=== PATIENT | female | born 1990 | race Caucasian/White ===

== ENCOUNTER 2018-01-12 08:11 | Day surgery (SDC) | payer MEDICAID, SELFPAY ==
[2018-01-12] VITALS (11 sets, daily range): BP systolic 125–170; BP diastolic 73–97; PULSE 95–110; RESP 16–18; TEMP 36.3–37.3; O2SAT 94–98; BMI 52.2
--- NOTE | 2018-01-12 06:17 | PCM.HP.OB ---
- Problem List (1) Abnormal uterine bleeding Status: Acute (2) Endometriosis Status: Acute History Date of Admission: 01/12/18 History of this : 28 yo presents with persistent AUB and pain due to endometriosis that she has struggled with since puberty. She has tried hormonal therapy in the past but now has a liver lesion that contraindicates hormones. She failed a trial of lysteda. She co significant pain and heavy bleeding that interferes with quality of life and is unable to be managed with pain medication. She has discussed hysterectomy several times over the years and had another physician decline to offer this to her due to age and risk of regret. The patient and her referring pcp have discussed this multiple times and she has also with myself that she is ready for a hysterectomy despite her not having any children. She has never wanted children regardless of any partners wishes and for quality of life patient wishes to proceed with hysterectomy. Pertinent Past Medical History: Medical History Anxiety and depression (Acute) Endometriosis (Acute) Hepatic adenoma (Acute) fibromylagia (Acute) Hypertension (Chronic) Surgical History History of dental surgery (Acute) History of liver biopsy (Acute) History of tonsillectomy (Acute) adnoids (Acute) Family History Mother Thyroid disorder Diabetes Grandmother Thyroid disorder Osteoporosis Breast cancer Father Hypertension Social History Smoking Status: Never smoker alcohol intake: never substance use type: does not use caffeine: No what type of physical activity do you participate in: none seatbelt use: always do you feel safe at home: Yes additional social history: patient is single and works at a [employer] Allergies No Known Allergies Allergy (Verified 01/05/18 13:54) Current Medications Cefotetan Disodium/Dextrose (Cefotan) 2 gm in 50 mls @ 100 mls/hr IV PREOP ONE Stop: 01/12/18 07:29 Review of Systems Constitutional: Denies: Chills, Fever, Weight Change HEENT: Denies: Head Aches, Sinus Congestion, Sinus Drainage Cardiovascular: Denies: Chest Pain, Palpitations Respiratory: Denies: Cough, Shortness of breath at rest, Sputum production Gastrointestinal: Reports: Abdominal Pain. 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 discussed at length risk of regret due to hysterectomy, risk of anesthesia, risk of infection, bleeding, damage to surrounding structures like bowel, bladder, or blood vessels that could lead to laparotomy or additional surgery. patient wishes to proceed with surgery.
[2018-01-12 08:34] LABS: Internal QC Validated? YES +Cl - CLEAR BKGD
[2018-01-12 08:35] LABS: Pregnancy, Urine Negative Negative
[2018-01-12 09:36] LABS: Hematocrit 38.8 % (37-47); Hemoglobin 12.7 g/dl (12.0-15.0); Mean Corp Hgb Conc 32.7 g/gl (32-36); Mean Corpuscular Hgb 28.6 pg (27.0-32.0); Mean Corpuscular Volume 87.4 fL (81-99); Platelet Count 306 K/mm3 (150-450); RBC Distribution Width CV 14.4 % (11.6-14.6); RBC Distribution Width SD 45.5 fl (35.1-43.9); Red Blood Count 4.44 M/mm3 (4.2-5.4)
[2018-01-12 09:37] LABS: Scan Indicated on CBC? Y/N NO
[2018-01-12 09:48] LABS: Anion Gap 10 (5-15); BUN 10 mg/dL (7-18); BUN/Creat Ratio 15.8 RATIO (10-20); Calcium,Total 8.4 mg/dL (8.5-10.1); Chloride 105 mmol/L (98-107); Creatinine, Serum 0.63 mg/dL (0.55-1.02); EST Glomerular Filtration Rate 119 mL/min (>60); Est Glom Filt Rate - Afr Amer 144 mL/min (>60); Glucose 78 mg/dL (74-106); Potassium 3.8 mmol/L (3.5-5.1); Sodium Level 141 mmol/L (136-145)
--- NOTE | 2018-01-12 09:50 | HYST_PTH ---
PATIENT: PORTIA GUERRA LOC: [facility] [place] U#:[id number] AGE/SX: 28/F ROOM: RE01/12/[address]: Dr. Yelena Myers MD : 1990 BED: DIS: 01/13/2018 SPEC #: [id number] RECD: 01/12/18 13:20 STATUS: MATTHEW ORLANDO #: [id number] JOHN: 01/12/18 09:[address]: Yelena Myers DEPT: SURGICAL PATHOLOGY RECD BY: Emerald Foy ENTERED: 01/12/18 13:53 SP TYPE: HYSTERECT OT DR: Valery Primary Care Phys Tissues: A - Uterus, NOS B - OVARIAN CYST Procedures: Surgery Specimen Level IV Surgery Specimen Level V HEADER OPERATION: Hysterectomy, lap assisted vaginal, bilateral salpingectomy PRE-OP DIAGNOSIS: Abnormal uterine bleeding, endometriosis TISSUE SUBMITTED: A. Uterus with bilateral fallopian tubes, B. Left ovarian cyst wall MICROSCOPIC DIAGNOSIS A. Uterus and bilateral fallopian tubes, vaginal hysterectomy and bilateral salpingectomy: Cervix ? chronic inflammation. Endometrium ? proliferative endometrium. Myometrium ? subserosal adenomyosis. Bilateral fallopian tubes - no pathologic diagnosis. Left paratubal cyst. B. Left ovarian cyst wall: Consistent with hemorrhagic cyst contents. See comment. SJ:rg 01/13/18 COMMENT Focal areas show follicular cells, lesion may represents follicular hemorrhagic cyst.. Clinical correlation and appropriate follow up are necessary. This case has been reviewed in consultation with Dr. Rossi who concurs with the above diagnosis. MICROSCOPIC DESCRIPTION Slides are reviewed. GROSS DESCRIPTION A - Received in fixative is one container labeled with the patient's name and designated uterus with bilateral fallopian tubes. The specimen consists of a hysterectomy specimen consisting of uterus with cervix and attached bilateral fallopian tubes. The uterus with cervix weighs 67 gm and measures 8 x 6 x 3.5 cm. The serosal surface is focally ragged. The ectocervical mucosa is unremarkable. The external os is oval in contour. The endocervical canal measures 3 cm in length and the endocervical mucosa is day, glistening and unremarkable. The triangular endometrial cavity measures 5 cm in length and 2.5 cm in width. The endometrium is day, glistening without any mass lesion and measures 0.1 cm in thickness. Sections of the uterine wall do not reveal any mass lesion and it measures 1.8 cm in thickness. The right fallopian tube measures 6 cm in length and up to 1 cm in diameter. The fimbrial end is identified. Sections reveal unremarkable cut surfaces. The left fallopian tube is similar appearance to right and measures 5.5 cm in length and up to 1 cm in diameter. The fimbrial end is identified. One paratubal cyst is noted measuring 1 cm in greatest dimension. Sections reveal unremarkable cut surfaces. Corporate Relations Manager sections are submitted in eight cassettes as follows: 1 - anterior cervix, 2 - posterior cervix, 3 & 4 - anterior uterine wall, 5 & 6 - posterior uterine wall, 7 ? right fallopian tube, 8 ? left fallopian tube. B - Received in fixative is one container labeled with the patient's name and designated left ovarian cyst wall. The specimen consists of multiple pieces of pink, congested soft tissue that in aggregate measure 1.5 x 1.5 x 0.3 cm. The entire specimen is submitted in one cassette. / ONIEL:jorge 01/12/18 TC:5 CPT: 05611, 29098
[2018-01-12] MEDS: Vasopressin 20 UNITS/ML Vial (11:44)
[2018-01-12] MEDS: Bupivacaine 0.25% 30 ML Vial (11:44)
--- NOTE | 2018-01-12 12:34 | OP.PCM_ITS ---
Problem List (1) Abnormal uterine bleeding Status: Acute (2) Endometriosis Status: Acute Report of Operation Date of Procedure: 01/12/18 Pre-Operative Diagnosis: AUB endometriosis Post-Operative Diagnosis: same Surgery/Procedure Performed:: laparoscopic assisted vaginal hysterectomy bilateral salpingectomy cystoscopy Description of Surgical Findings:: significant endoemtriosis implant and thickening, normal uterus clubbed fallopian tubes, ovaries multicystic with endometriosis implants Type of Anesthesia:: General Specimen's removed: uterus tubes ovaries Drains: cshulte Estimated Blood Loss (mL): 150 Fluids Replaced: crystalloid Description of Procedure: Patient received preoperative antibiotics and SCDs were on preoperatively. Patient was taken back to the operating room and placed in the dorsal lithotomy position. General anesthesia was induced and patient was prepped and draped in normal sterile fashion. Uterine manipulator was placed inside the uterus and Schulte catheter placed in the bladder. The umbilicus was grasped with towel clamps and an intraumbilical incision was made after injecting with quarter percent Marcaine and a Veress needle entered into the abdomen confirmed to be intra-abdominal with a low opening pressure. Abdomen was insufflated with CO2 gas and the Veress needle removed and the 5 mm trocar was placed under direct visualization without complication. Right and left lower quadrants were transilluminated and injected with quarter percent Marcaine and 5 mm ports placed under direct visualization. Pelvis was well visualized see operative findings for additional information. Tubal endometriosis implants and other endometriosis implants were seen on the anterior lower uterine corpus and bilateral ovaries. bilateral fallopian tubes were identified and transected with the LigaSure device across the mesosalpinx to the level of the utero- ovarian ligament which was also transected with the LigaSure device. The broad ligament was opened up by transecting the round ligament bilaterally and skeletonizing the uterine vessels bilaterally and creating a bladder flap using the LigaSure device. The uterine arteries were transected bilaterally with good visualization of the bladder and the ureters were seen to be inferior lateral to the operative area. There is rectosigmoid adhesions that were transected with the LigaSure device and also some left paracolic adhesions that were transected with the LigaSure device. Attention was then paid to the vaginal portion of the procedure and the cervix was grasped with Clay clamps and circumferentially injected with dilute vasopressin. A circumferential incision was made and the vaginal mucosa was mobilized off posteriorly and the cul-de-sac entered into sharply and a longneck speculum placed. The anterior cul-de-sac was then identified and entered into sharply. The uterosacral ligaments were clamped cut and suture ligated with 0 Monocryl bilaterally followed by the cardinal ligaments which were clamped cut and suture ligated bilaterally with 0 Monocryl. The uterus serially descended and was removed without difficulty with minimal morcellation. Pelvic sidewall pedicles were checked and noted to have excellent hemostasis. The vaginal mucosa was reapproximated incorporating the posterior peritoneum. This was reapproximated using 0 Vicryl [id number] sutures. Excellent hemostasis was noted. The cystoscopy was then performed and bilateral ureteral strong spray was noted and the bladder was noted to have no abnormality or lesions seen. Schulte catheter was replaced and then attention paid to the abdominal portion of the procedure again. The pelvis and cul-de-sac was well visualized and no significant active bleeding noted but some raw areas were seen on the peritoneum and therefore Jaime was applied. The remaining endometriosis implants that were seen in the ovaries were cauterized with monopolar energy. The left ovary was cystic and was opened up and it was unclear whether it was a hemorrhagic corpus luteum or a possible small endometrioma with a cyst wall was removed and sent to pathology for analysis. Pressure was taken down and the areas visualized and noted of excellent hemostasis. All ports were removed under direct visualization without complication and the abdomen was desufflated of air. The instruments removed from the abdomen and the vagina vaginal sweep was negative. Port sites on the abdomen were closed with 4-0 Monocryl interrupted sutures and Steri's and windows were applied. She was awoken and taken recovery in stable condition. Grafts/Implants Used: none - Complications none - Admit VTE Documentation VTE Present on Admission: No VTE Mechan Device Prophylaxis: SCD's
[2018-01-12] MEDS: Lactated Ringers 1,000 ML 125 ML IV (15:17)
[2018-01-12] MEDS: Acetaminophen 500 MG Tablet 1000 MG PO ×2 (16:02→21:17)
[2018-01-12] MEDS: Gabapentin 600 MG Tablet PO ×2 (16:02→21:17)
[2018-01-12] MEDS: Ketorolac 30 MG/ML Syringe IV (17:36)
[2018-01-12] MEDS: oxyCODONE 5 MG Tablet PO (20:07)
[2018-01-12] MEDS: Amitriptyline 25 MG Tablet 50 MG PO (21:17)
[2018-01-12] MEDS: DULoxetine Hcl 60 MG Capsule PO (21:17)
[2018-01-13 02:23] VITALS: BP 139/85; PULSE 105; RESP 16; TEMP 36.6; O2SAT 98
[2018-01-13] MEDS: Ketorolac 10 MG Tablet PO (06:14)
[2018-01-13] MEDS: Gabapentin 600 MG Tablet PO (06:15)
[2018-01-13] MEDS: Acetaminophen 500 MG Tablet 1000 MG PO (06:15)
[2018-01-13 07:26] VITALS: BP 128/80; PULSE 102; RESP 20; TEMP 36.9; O2SAT 92
[2018-01-13] MEDS: oxyCODONE 5 MG Tablet PO (07:39)
[2018-01-13] MEDS: Multivitamins,Therapeutic Tablet 1 TABLET PO (07:40)
[2018-01-13 07:51] LABS: Hemoglobin 11.9 g/dl (12.0-15.0); Mean Corp Hgb Conc 33.1 g/gl (32-36); Mean Corpuscular Hgb 29.1 pg (27.0-32.0); Mean Platelet Vol. 8.7 fl (6.2-12.0); Platelet Count 301 K/mm3 (150-450); RBC Distribution Width CV 14.3 % (11.6-14.6); RBC Distribution Width SD 45.7 fl (35.1-43.9); Red Blood Count 4.09 M/mm3 (4.2-5.4); White Blood Count 10.6 K/mm3 (4.4-11.0)
[2018-01-13 07:53] LABS: Scan Indicated on CBC? Y/N NO
[2018-01-13] MEDS: hydroCHLOROthiazide 25 MG Tablet PO (09:21)
[2018-01-13] MEDS: DULoxetine Hcl 60 MG Capsule PO (09:21)
--- NOTE | 2018-01-13 09:28 | PCM.PN.OB ---
Subjective: doing well no complaints pain controlled no CP SOB N V - Physical Exam General: Alert, Oriented x3 Vital Signs Temp Pulse Resp BP Pulse Ox 98.5 F 102 H 20 H 128/80 H 92 01/13/18 07:26 01/13/18 07:26 01/13/18 07:26 01/13/18 07:26 01/13/18 07:26 Oxygen Flow Rate (L/min) 2 Oxygen Delivery Method Room Air Weight: 304 lb 7.334 oz Body Mass Index (BMI) 52.2 Intake and Output for Last 24 Hours 01/11/18 01/12/18 01/13/18 23:59 23:59 23:59 Intake Total 2284 / 2284 530 / 530 Output Total 1100 / 1100 1525 / 1525 Balance 1184 / 1184 -995 / -995 Laboratory Tests Past 24 Hrs 01/12/18 01/12/18 01/12/18 09:15 09:15 09:15 WBC 7.0 RBC 4.44 Hgb 12.7 Hct 38.8 MCV 87.4 MCH 28.6 MCHC 32.7 RDW 14.4 RDW Differential 45.5 H Plt Count 306 MPV 9.0 Sodium 141 Potassium 3.8 Chloride 105 Carbon Dioxide 26.0 Anion Gap 10 BUN 10 Creatinine 0.63 Estim Creat Clear Calc 114.80 Est GFR (MDRD) Af Amer 144 Est GFR (MDRD) Non-Af 119 BUN/Creatinine Ratio 15.8 Glucose 78 Calcium 8.4 L Blood Type A POSITIVE Antibody Screen NEGATIVE 01/13/18 07:35 WBC 10.6 RBC 4.09 L Hgb 11.9 L Hct 36.0 L MCV 88.0 MCH 29.1 MCHC 33.1 RDW 14.3 RDW Differential 45.7 H Plt Count 301 MPV 8.7 Sodium Potassium Chloride Carbon Dioxide Anion Gap BUN Creatinine Estim Creat Clear Calc Est GFR (MDRD) Af Amer Est GFR (MDRD) Non-Af BUN/Creatinine Ratio Glucose Calcium Blood Type Antibody Screen Assessment/Plan s/p [facility]BS doingw [facility] routine care [place]
--- NOTE | 2018-01-13 09:31 | PCM.DC.VHY ---
Discharge Diet: No Restrictions Discharge Activity: Return to Normal Activity, May Not Drive, May Shower May resume sexual activity in: 6-8 weeks Call your doctor if your incision/area has: Continuous Slow Oozing, Sudden Increased Bleeding, Increased Pain/ Swelling, Increased Redness, Foul Smelling Discharge Call your doctor if you observe: Fever of 101 or Higher, Inability to urinate, Inability to have a bowel movement, Using more than one pad per hour Allergies/Adverse Reactions: Allergies No Known Allergies Allergy (Verified 01/05/18 13:54) Medications to take at Discharge amitriptyline 50 mg tablet 50 mg PO QHS 11/10/17 duloxetine 60 mg capsule,delayed release 60 mg PO BID 11/10/17 Gabapentin [Gralise] 600 mg PO TID 01/05/18 Hydrochlorothiazide [Hctz] 25 mg PO DAILY 01/05/18 Multivitamin [Daily Multiple Vitamin] 1 each PO DAILY 01/05/18 Naproxen [Naprosyn] 250 - 500 mg PO Q8H PRN PRN #30 tab 01/13/18 Oxycodone HCl/Acetaminophen [Percocet 5-325] 2 tablet PO Q4H PRN PRN 7 Days #28 tablet 01/13/18 The following prescriptions were given: Oxycodone HCl/Acetaminophen [Percocet 5-325] 2 tablet PO Q4H PRN PRN 7 Days #28 tablet PRN Reason: Moderate-Severe pain Naproxen [Naprosyn] 250 - 500 mg PO Q8H PRN PRN #30 tab PRN Reason: MILD PAIN Primary Care Physician: Care Physician,No Primary [Primary Care Provider] - Please Follow Up With: Yelena Myers MD - [phone] When: 2 and 6 weeks
[2018-01-13] MEDS: Enoxaparin 60 MG/0.6 ML Syringe SC (10:07)
[2018-01-13 10:15] VITALS: BP 128/80; PULSE 102; RESP 20; TEMP 36.9; O2SAT 92
== END 2018-01-13 09:30 | disposition home or self-care (01) ==
LOC: SDC 08:12 → AC 08:13 → MS3 14:05
PROVIDERS: Anesthesiology; Visit Provider Obstetrics & Gynecology
PROC: 0UT9FZZ Resection of Uterus, Via Natural or Artificial Opening With Percutaneous Endoscopic Assistance (ICD-10-PCS; CPT 58552; principal; 2018-01-12 09:25)
DX: N93.9 Abnormal uterine and vaginal bleeding, unspecified (principal); N80.0 Endometriosis of uterus; N83.202 Unspecified ovarian cyst, left side; N72 Inflammatory disease of cervix uteri; F41.9 Anxiety disorder, unspecified; F32.9 Major depressive disorder, single episode, unspecified; Z79.899 Other long term (current) drug therapy; I10 Essential (primary) hypertension; K76.9 Liver disease, unspecified; M79.7 Fibromyalgia
CPT/HCPCS: 00940; 58552; 36415; 80048; 81025; 85027; 86850; 86900; 88305; 88307; J7120; J2405

== ENCOUNTER → 2022-04-01 | Outpatient (CLI) | payer MEDICAID, SELFPAY ==
--- NOTE | 2022-04-01 18:26 | US_ITS ---
STUDY: ULTRASOUND OF THE FEMALE PELVIS - COMPLETE REASON FOR EXAM: Female, 32 years old. PELVIC PAIN TECHNIQUE: Transabdominal and transvaginal scanning. TECHNICAL QUALITY: Adequate. COMPARISON: None. FINDINGS: UTERUS: Surgically absent. RIGHT OVARY: Visualized by transabdominal scanning. Right ovary is normal in size measuring 3.6 x 2.1 x 1.7 cm in diameter. Normal Doppler flow noted within the right ovary. No right ovarian or paraovarian mass lesion. LEFT OVARY: Visualized by transabdominal scanning. Left ovary is enlarged measuring 8.0 x 5.9 x 4.2 cm in diameter. This enlarged left ovary is lobulated and contains multiple thin-walled anechoic cystic foci, consistent with ovarian cysts which measure up to 3.7 x 4.1 x 2 cm in diameter. Doppler flow is noted within the rim of peripheral ovarian tissue. No paraovarian mass. There is no fluid in the cul-de-sac. The pre void volume of the bladder was 262 ml. US/Pelvic (Non ) IMPRESSION: Status post hysterectomy. No findings of ovarian torsion. Normal right ovary. Enlarged left ovary due to multiple cystic foci, consistent with ovarian cysts but follow-up may be of benefit to document interval resolution. Electronically Signed: Sage Wade MD at 7:39 EDT ,
--- NOTE | 2022-04-01 18:26 | US_ITS ---
STUDY: ULTRASOUND OF THE FEMALE PELVIS - COMPLETE REASON FOR EXAM: Female, 32 years old. PELVIC PAIN TECHNIQUE: Transabdominal and transvaginal scanning. TECHNICAL QUALITY: Adequate. COMPARISON: None. FINDINGS: UTERUS: Surgically absent. RIGHT OVARY: Visualized by transabdominal scanning. Right ovary is normal in size measuring 3.6 x 2.1 x 1.7 cm in diameter. Normal Doppler flow noted within the right ovary. No right ovarian or paraovarian mass lesion. LEFT OVARY: Visualized by transabdominal scanning. Left ovary is enlarged measuring 8.0 x 5.9 x 4.2 cm in diameter. This enlarged left ovary is lobulated and contains multiple thin-walled anechoic cystic foci, consistent with ovarian cysts which measure up to 3.7 x 4.1 x 2 cm in diameter. Doppler flow is noted within the rim of peripheral ovarian tissue. No paraovarian mass. There is no fluid in the cul-de-sac. The pre void volume of the bladder was 262 ml. US/Transvaginal Non- IMPRESSION: Status post hysterectomy. No findings of ovarian torsion. Normal right ovary. Enlarged left ovary due to multiple cystic foci, consistent with ovarian cysts but follow-up may be of benefit to document interval resolution. Electronically Signed: Sage Wade MD at 7:39 EDT ,
== END | disposition home or self-care (01) ==
PROVIDERS: Visit Provider Obstetrics & Gynecology
DX: R10.2 Pelvic and perineal pain (principal)
CPT/HCPCS: 76830; 76856

== ENCOUNTER → 2022-04-19 | Outpatient (CLI) | payer MEDICAID, SELFPAY ==
--- NOTE | 2022-04-19 18:21 | US_ITS ---
ACR Level 3 findings have been noted. An addendum which confirms receipt of the report will follow. rScriptor Unformatted Report Gender: Female Age: 32 years Exam: US Pelvis Non OB Complete With Transvaginal Imaging Comparison: April 01, 2022. History: pelvic pain Right ovary 4.1 cm x 3.1 cm x 3.3 cm with documented blood flow. Small central cystic area similar to prior exam.. Left ovary including paraovarian or exophytic cystic component, left ovary solid or homogeneous heterogeneous component portion measuring 4.2 cm x 4 cm x 5.4 cm with intermediate echogenicity and underlying bilobed thin-walled cystic structure of 4.9 cm x 2.7 cm x 2.9 cm or multiple adjacent cysts. Overall size of the left ovary with what appeared to be exophytic or adjacent cysts measuring roughly 7.2 cm x 5.3 cm. Left ovary was reportedly 8 cm x 5.9 cm x 4.2 cm on prior exam. US/Transvaginal Non- IMPRESSION: Unremarkable right ovary. Complex appearance of left adnexa, similar in size and complexity to April 01, 2022, only 18 day follow-up. Minimal apparent blood flow in the zone surrounding almost isoechoic contents of a possible cystic lesion, this may be endometrioma or dermoid in the left ovary but cannot exclude neoplasm or or torsion with necrosis. There is only minimal peripheral blood flow of the left ovary suggesting replacement by complex cystic lesion, less likely due to torsion. Consideration for MRI is recommended. Electronically Signed: Kathi Yuan MD at 6:16 EDT ,
--- NOTE | 2022-04-19 18:21 | US_ITS ---
ACR Level 3 findings have been noted. An addendum which confirms receipt of the report will follow. rScriptor Unformatted Report Gender: Female Age: 32 years Exam: US Pelvis Non OB Complete With Transvaginal Imaging Comparison: April 01, 2022. History: pelvic pain Right ovary 4.1 cm x 3.1 cm x 3.3 cm with documented blood flow. Small central cystic area similar to prior exam.. Left ovary including paraovarian or exophytic cystic component, left ovary solid or homogeneous heterogeneous component portion measuring 4.2 cm x 4 cm x 5.4 cm with intermediate echogenicity and underlying bilobed thin-walled cystic structure of 4.9 cm x 2.7 cm x 2.9 cm or multiple adjacent cysts. Overall size of the left ovary with what appeared to be exophytic or adjacent cysts measuring roughly 7.2 cm x 5.3 cm. Left ovary was reportedly 8 cm x 5.9 cm x 4.2 cm on prior exam. US/Pelvic (Non ) IMPRESSION: Unremarkable right ovary. Complex appearance of left adnexa, similar in size and complexity to April 01, 2022, only 18 day follow-up. Minimal apparent blood flow in the zone surrounding almost isoechoic contents of a possible cystic lesion, this may be endometrioma or dermoid in the left ovary but cannot exclude neoplasm or or torsion with necrosis. There is only minimal peripheral blood flow of the left ovary suggesting replacement by complex cystic lesion, less likely due to torsion. Consideration for MRI is recommended. Electronically Signed: Kathi Yuan MD at 6:16 EDT ,
== END | disposition home or self-care (01) ==
LOC: US 18:20
PROVIDERS: Visit Provider Obstetrics & Gynecology
DX: N83.202 Unspecified ovarian cyst, left side (principal); N80.9 Endometriosis, unspecified; N93.9 Abnormal uterine and vaginal bleeding, unspecified; R10.2 Pelvic and perineal pain
CPT/HCPCS: 76830; 76856; 93976

== ENCOUNTER 2022-04-21 15:54 | Observation (INO) | payer MEDICAID, SELFPAY ==
[2022-04-21] VITALS (16 sets, daily range): BP systolic 100–151; BP diastolic 47–87; PULSE 77–100; RESP 14–16; TEMP 36.4–37.1; O2SAT 94–100; BMI 50.8; BMI 50.6
--- NOTE | 2022-04-21 08:00 | PCM.HP.BLA ---
History and Physical Date of Admission: 04/21/22 Date of Service:? 04/07/22 MR#: [id number] Acct: [id number] Name:PORTIA BAR Rep #: [id number] : 1990 ? ? Provider: Dr. Shayla Harrington, DO Age/Sex:? 32/F ? ? [place] [facility] [place]igned Intake Vital Signs ? 04/07/2210:29 Height 5 ft 4 in Weight: 302 lb 4 oz BMI 51.8 BP 120/90 H Intake Visit Reasons:?left adnexal mass Certified Personal Trainer Required: No Is patient in pain?: Yes Allergies No Known Allergies Allergy (Verified 04/07/22 10:30) Medications amitriptyline 50 mg tablet 50 mg PO QHS 11/10/17 [History Confirmed 04/07/22] multivitamin [Daily Multiple Vitamin] 1 ea PO DAILY 01/05/18 [History Confirmed 04/07/22] gabapentin 600 mg tablet,extended release 24 hr 400 mg PO TID? tab 04/07/22 [History Confirmed 04/07/22] hydrochlorothiazide 25 mg tablet 50 mg PO DAILY? tab 04/07/22 [History Confirmed 04/07/22] ketorolac 10 mg tablet 10 mg PO Q8H 5 Days #15 tab 04/07/22 [Rx Confirmed 04/07/22] topiramate 50 mg tablet 50 mg PO BID 04/07/22 [History Confirmed 04/07/22] venlafaxine 75 mg capsule,extended release 24 hr 75 mg PO DAILY 04/07/22 [History Confirmed 04/07/22] Post menopausal: No Patient : No : No PFSH Medical History? Anxiety and depression Endometriosis fibromylagia Hepatic adenoma Hypertension Surgical History? adnoids History of dental surgery History of liver biopsy History of tonsillectomy Family History? Mother Thyroid disorder DiabetesGrandmother Thyroid disorder Osteoporosis Breast cancerFather Hypertension Social History?(Updated 04/07/22 @ 10:30 by Lilo Sousa) Smoking Status:? Former smoker alcohol intake:? never substance use type:? does not use caffeine:? No what type of physical activity do you participate in:? none seatbelt use:? always do you feel safe at home:? Yes additional social history:? Single ? HPI left adnexal mass Details: PORTIA GUERRA is a 32 year old who presents for discussion of a recent finding on ultrasound showing an 8 cm left ovary containing 2 simple ovarian cyst measuring 3 and 4 cm each.? Patient complains of severe pelvic pain despite history of hysterectomy with Dr. Myers in the past.? Patient denies any nausea vomiting diarrhea constipation she denies fevers or chills. Female Reproductive History Menopausal Symptoms: No hot flashes, No night sweats, No difficulty concentrating and No change in libido Pregancy History ? ? ? 0 ? Elective abortions ? Hx Para ? Spontaneous abortions ? Hx # Term Pregnancies ? Ectopic pregnancies ? Hx # Pregnancies ? Multiple births ? # of living children ? ROS Const Constitutional: Reports as per HPI; Denies fatigue, increased appetite, poor appetite, night sweats, weight gain or weight loss Cardio Card: Denies chest pain Resp Resp: Denies cough or dyspnea GI GI: Reports as per HPI; Denies abdominal pain, bloating, constipation, nausea or vomiting : Reports as per HPI and other; Denies difficulty voiding, dysuria, hematuria, hot flashes, nipple discharge, pelvic pain, prolapse symptoms, urinary frequency, urinary incontinence, urinary urgency, vaginal discharge, vaginal dryness, vaginal odor or vaginal pruritus Skin Skin/Breast: Denies changing lesions, breast mass, breast pain, breast skin changes or nipple discharge Psych Psych: Denies anxiety, change in libido, depression or difficulty concentrating Exam Const General: cooperative, healthy appearing, comfortable and no acute distress HENMT Head: normal to inspection Neck Neck: normal visual inspection Resp Effort & Inspection: normal respiratory effort Skin General: no rashes or lesions noted Neuro General: patient alert, patient awake and patient oriented x3 Extrem General: normal to inspection and other (obese) Psych Appearance: grossly normal Speech and Movement: speech and movement normal Coding Level of Care Code Off vis,est,level 5 Diagnoses Abnormal uterine bleeding? N93.9 Endometriosis? N80.9 Morbid obesity? E66.01 Ovarian cyst, left? N83.202 Assessment and Plan Assessment and Plan (1) Abnormal uterine bleeding: ?Status:?Acute (2) Endometriosis: ?Status:?Acute (3) Morbid obesity: ?Status:?Acute (4) Ovarian cyst, left: ?Status:?Acute ?Plan - Dr. Shayla Harrington, DO: 2 simple appearing ovarian cysts located on the left ovary creating pelvic pain and discomfort overall and ovarian size measures 8 cm.? I have recommended to the patient to try nonsteroidal anti-inflammatories and a prescription was sent to the pharmacy for naproxen 500 mg twice daily as needed pain.? My strongest recommendation is for follow-up for resolution of the cyst however the patient would like to proceed with the diagnostic laparoscopy with left salpingo-oophorectomy.? She agrees to repeating the ultrasound prior to surgery if surgery takes more than 1 to 2 weeks to schedule. After discussing the patient's diagnosis and treatment plan options, patient wishes to proceed with surgical management.? I have discussed with the patient the risks, benefits, and alternatives of the procedure which include but are not limited to risks of anesthesia, bleeding, infection, possible damage to bowel, bladder, or surrounding vasculature which could lead to additional surgery to evaluate any complications.? Patient agrees to procedure and wishes to proceed.? ACOG/uptodate references given for additional information regarding procedure. The plan at this time is to send this information to Dr. Myers, as she is her primary IT BUSINESS PROCESS ARCHITECT provider and performed her prior surgery.? The patient is requesting an URSULA surgery and I have discussed with the patient that if there are no openings with Dr. Myers there is a chance between the 2 of us we could work together and get this done per her request? Plan Details Other Medications: ?New: ? ketorolac 10 mg? PO Q8H 5 days 15 tabs 0RF ? ? Follow up ultrasound of left ovary showed the following: ADDENDUM by Dr. Kathi Yuan MD on 04/20/22 at 0616 rScriptor Unformatted Report Gender: Female Age: 32 years Exam: US Pelvis Non OB Complete With Transvaginal Imaging Comparison: April 01, 2022. History: pelvic pain Right ovary 4.1 cm x 3.1 cm x 3.3 cm with documented blood flow.? Small central cystic area similar to prior exam.. Left ovary including paraovarian or exophytic cystic component, left ovary solid or homogeneous heterogeneous component portion measuring 4.2 cm x 4 cm x 5.4 cm with intermediate echogenicity and underlying bilobed thin-walled cystic structure of 4.9 cm x 2.7 cm x 2.9 cm or multiple adjacent cysts.? Overall size of the left ovary with what appeared to be exophytic or adjacent cysts measuring roughly 7.2 cm x 5.3 cm.? Left ovary was reportedly 8 cm x 5.9 cm x 4.2 cm on prior exam. 04/20/22 0616 Date ? cc:? Dr. Yelena Myers MD; No Primary? Care Physician ~* Signed ADDENDUM by Dr. Kathi Yuan MD on 04/20/22 at 0616 US/Transvaginal Non- IMPRESSION: Unremarkable right ovary. ? Complex appearance of left adnexa, similar in size and complexity to April 01, 2022, only 18 day follow-up.? Minimal apparent blood flow in the zone surrounding almost isoechoic contents of a possible cystic lesion, this may be endometrioma or dermoid in the left ovary but cannot exclude neoplasm or or torsion with necrosis.? There is only minimal peripheral blood flow of the left ovary suggesting replacement by complex cystic lesion, less likely due to torsion. Consideration for MRI is recommended. ? Plan for laparoscopic LSO 04/21/22. UPDATE- I have seen the patient and performed any clinically relevant updates to the history and physical exam. Shayla Harrington,
--- NOTE | 2022-04-21 12:20 | EKG12_ITS ---
Test Reason : PRE OP Blood Pressure : / mmHG Vent. Rate : 089 BPM Atrial Rate : 089 BPM P-R Int : 154 ms QRS Dur : 108 ms QT Int : 390 ms P-R-T Axes : 028 088 043 degrees QTc Int : 474 ms Normal sinus rhythm Low voltage QRS Borderline ECG Confirmed by SUMI GHOSH, LUCIANO ([id number]), acquisitions editor MONROE BRISENO ([id number]) on 04/23/2022 11:50:02 AM Referred By: Shayla Harrington Confirmed By:LUCIANO JONAS MD
[2022-04-21] MEDS: Lactated Ringers 1,000 ML 15 ML IV ×2 (12:45→16:58)
[2022-04-21 12:51] LABS: Hemoglobin 14.3 g/dL (12.0-15.0); Mean Corp Hgb Conc 33.3 g/dL (32-36); Mean Corpuscular Hgb 28.9 pg (27.0-32.0); Mean Platelet Vol. 8.8 fl (6.2-12.0); Platelet Count 288 K/mm3 (150-450); RBC Distribution Width CV 14.6 % (11.6-14.6); Red Blood Count 4.94 M/mm3 (4.2-5.4)
--- NOTE | 2022-04-21 12:53 | DCINST_ITS ---
Discharge Instructions Diet Discharge Diet: No restrictions Activity Discharge Activity: Return to Normal Activity, May Not Drive (for two weeks or while taking narcotic pain medications.), May Shower and May Take a Tub Bath (in 7 days) May resume sexual activity in: 1 week Weight Bearing Status: Full weight bearing Dressing / Incision Call your doctor if you observe: Using more than 1 pad per hour, Shortness of breath, Chest pain and Uncontrolled pain Suture Line Care: Avoid Pulling/Pushing and Avoid Pinching/Bending Remove Dressing in: 1 week (if present) Cleanse incision/area with: Soap & Water and Keep Dressing Clean & Dry Follow Up Care Please Follow Up With: Shayla Harrington DO When: Call to make an appointment with your doctor for a follow up incision check in 1-2 weeks. Test Results: Test results from this visit will be discussed in further detail at your follow- up appointment, if applicable. Discharge Plan Admission Primary Reason for Your Visit: laparoscopic removal of left ovary and fallopian tube Attending Provider: Shayla Harrington Primary Care Provider: Di Kiran Instructions Patient Instructions: Ovarian Torsion Laparoscopic Surg Discharge Orders/Prescriptions Prescriptions: New ibuprofen 600 mg tablet 600 mg PO Q6H PRN (Reason: pain) 7 Days Qty: 28 0RF Rx Instructions: one tab every 6 hrs as needed for mild to moderate pain oxycodone-acetaminophen [Percocet] 5-325 mg tablet 1 tab PO Q6H PRN (Reason: pain) 3 Days Qty: 10 0RF Continued amitriptyline 50 mg tablet 50 mg PO QHS venlafaxine [Effexor XR] 75 mg capsule,extended release 24hr 75 mg PO DAILY topiramate [Topamax] 50 mg tablet 50 mg PO BID multivitamin [Daily Multiple] 1 EACH tablet 1 ea PO DAILY Gralise 600 mg tablet extended release 24 hr 400 mg PO TID hydrochlorothiazide 25 mg tablet 50 mg PO DAILY Referrals / Follow Up: Di Kiran DO [Primary Care Provider] - Disposition Disposition (needs filled in before D/C Order can be placed): Home, Self Care
[2022-04-21 12:59] LABS: Anion Gap 7 (5-15); BUN 15 mg/dL (7-18); BUN/Creat Ratio 19.3 RATIO (10-20); Calcium,Total 8.9 mg/dL (8.5-10.1); Chloride 108 mmol/L (98-107); Creatinine, Serum 0.78 mg/dL (0.55-1.02); EST Glomerular Filtration Rate 91 mL/min (>60); Est Glom Filt Rate - Afr Amer 110 mL/min (>60); Estimated Creatinine Clearance 89.41 ml/min; Glucose 86 mg/dL (74-106); Potassium 3.3 mmol/L (3.5-5.1); Sodium Level 140 mmol/L (136-145)
--- NOTE | 2022-04-21 13:30 | OV_PTH ---
PATIENT: PORTIA GUERRA LOC: [facility] U#:[id number] AGE/SX: 32/F ROOM: [facility] RE04/21/[address]: Dr. Shayla Harrington DO : 1990 BED: 1 DIS: 04/22/2022 SPEC #: [id number] RECD: 04/22/22 11:08 STATUS: MATTHEW ORLANDO #: [id number] JOHN: 04/21/22 13:[address]: Shayla Harrington DEPT: SURGICAL PATHOLOGY RECD BY: Merlyn Rae ENTERED: 04/22/22 12:02 SP TYPE: OVARY OTHR DR: DO Dr. Di Perez DO Tissues: OVARIAN CYST Procedures: Surgery Specimen Level IV HEADER OPERATION: Diagnostic laparoscopy, lysis of adhesions, ovarian cystectomy PRE-OP DIAGNOSIS: Left ovarian cyst TISSUE SUBMITTED: Left ovarian cyst MICROSCOPIC DIAGNOSIS Left ovarian cyst, cystectomy: Fragments of ovarian tissue with endometriosis. Physiologic follicular cysts. ONIEL:jorge 04/23/2022 MICROSCOPIC DESCRIPTION Slides are reviewed. GROSS DESCRIPTION Received in fixative is one container labeled with the patient's name and designated left ovarian cyst. The specimen consists of multiple pieces of day soft tissue consistent with portion of cyst wall that in aggregate measure 4.5 x 4 x 2 cm. A focal area of cyst wall shows hemorrhagic surfaces. No obvious mass lesion is identified. The larger pieces are sectioned. The entire specimen is submitted in four cassettes. / ONIEL:jorge 04/22/2022 TC:5 CPT: 57133
[2022-04-21] MEDS: Bupivacaine Mpf 0.5% 30 ML VIAL (14:00)
--- NOTE | 2022-04-21 16:02 | PCM.OP.BLANK ---
Problems Associated Problem List Diagnoses (1) Endometriosis: (2) Morbid obesity: (3) Ovarian cyst, left: Operative Report Date of Procedure: 04/21/22 Preoperative diagnosis: left ovarian endometrioma, concerning for torsion postoperative diagnosis: left ovarian endometrioma, extensive endometriosis and bowel adhesion to left ovary Surgeon 1: Dr. Shayla Harrington DO Surgeon 2: Dr. Db Fleming MD Procedure: diagnostic laparoscopy, lysis of adhesions, ovarian cystectomy EBL: 200cc Urine output: 200cc fluids: 1700cc Complications: none Procedure: The patient was brought to the operating room and placed in a dorsal supine position. Legs were placed in stirrups and the bladder was drained. The abdomen was prepped and draped and an infraumbilical incision was made with an 11 blade. A 5 mm laparoscopic port site was inserted under direct visualization using the laparoscope. Intraabdominal placement was achieved and CO2 gas was used to inflate the abdomen. The patient was placed in Trendelenburg position and the cul-de sac was noted to be obliterated with adhesions of omentum and bowel. The right ovary was noted to be normal, however the left ovary was not able to be adequately visualized without bluntly peeling bowel pilars off the side wall. As this point, Dr. Fleming from General Surgery was asked to come to the room for assistance. 3 more 5 mm port sites were placed at the left lower quadrant and left mid quadrant. Further dissection was made per Dr. Fleming. Sharp dissection and electrocautery was used. The chocolate cyst ruptured incidentally and this was suction irrigated out. This allowed us to see a small opening in the ovary to allow for a cystectomy. The cyst was was grasped and pulled gently to expose the cyst wall. Electrocautery was used to remove the cyst wall. Once removed there were small areas on the ovarian tissue that were bleeding with no definitive areas that showed where it was exactly coming from. Electrocautery was used further to cauterize along the edges of the ovary but this did not help. Dr. Fleming dissected some tissue of the bowel off the back side of bladder in attempt to visualize better. This resulted in a small amount of bleeding as well. Further dissection was performed in attempt to isolate the IP ligament without success. Finally the decision was made to apply nella seal and Fibrillar and hold pressure with a gauze. After 10 minutes no new active bleeding was noted when the patient's blood pressure was lowered down to a systolic of 100. Her pressure slowly increased to systolic 120's and she remained hemostatic. The procedure was then ended. Multi Select Codes Urinary/Genital Urinary/Genital CPT Codes: 53419 Lysis of adhesions, laproscopic (with ovarian cystectomy ) and Other Procedure See Report
[2022-04-21 16:33] LABS: Hematocrit 42.6 % (37-47); Hemoglobin 13.9 g/dL (12.0-15.0); Mean Corp Hgb Conc 32.6 g/dL (32-36); Mean Corpuscular Volume 88.9 fL (81-99); Mean Platelet Vol. 8.5 fl (6.2-12.0); Platelet Count 250 K/mm3 (150-450); RBC Distribution Width CV 14.7 % (11.6-14.6); RBC Distribution Width SD 47.8 fl (35.1-43.9); Red Blood Count 4.79 M/mm3 (4.2-5.4); White Blood Count 11.3 K/mm3 (4.4-11.0)
--- NOTE | 2022-04-21 16:54 | PCM.PN.HOSP ---
Documented by User: ABDIRASHID Sommers 04/21/22 17:02 Subjective Subjective Patient seen and examined in PACU. Patient continues to be sleepy however patient is able to arouse and answer questions appropriately. Objective Data Objective Data Vital Signs: Vital Signs Temp Pulse Resp BP Pulse Ox 97.6 F L 77 16 135/87 H 95 04/21/22 16:11 04/21/22 16:35 04/21/22 16:35 04/21/22 16:35 04/21/22 16:35 Oxygen Flow Rate (L/min) 4 Oxygen Delivery Method Nasal Cannula Weight: 296 lb Body Mass Index (BMI) 50.8 Intake & Output: Intake and Output for Last 24 Hours 04/19/22 04/20/22 04/21/22 23:59 23:59 23:59 Output Total 100 / 100 Balance -100 / -100 Lab / Micro Data Result Diagrams: 04/21/22 18:24 04/21/22 12:35 Labs: Laboratory Results - last 24 hr 04/21/22 12:35: Sodium 140, Potassium 3.3 L, Chloride 108 H, Carbon Dioxide 25.0, Anion Gap 7, BUN 15, Creatinine 0.78, Estim Creat Clear Calc 89.41, Est GFR (MDRD) Af Amer 110, Est GFR (MDRD) Non-Af 91, BUN/Creatinine Ratio 19.3, Glucose 86, Calcium 8.9 04/21/22 12:35: WBC 9.0, RBC 4.94, Hgb 14.3, Hct 43.0, MCV 87.0, MCH 28.9, MCHC 33.3, RDW Std Deviation 46.0 H, RDW Coeff of Va 14.6, Plt Count 288, MPV 8.8 04/21/22 12:35: Blood Type A POSITIVE, Antibody Screen NEGATIVE 04/21/22 16:15: WBC 11.3 H, RBC 4.79, Hgb 13.9, Hct 42.6, MCV 88.9, MCH 29.0, MCHC 32.6, RDW Std Deviation 47.8 H, RDW Coeff of Va 14.7 H, Plt Count 250, MPV 8.5 Physical Exam Const oriented x3 General Appearance: cooperative Orientation / Consciousness: lethargic HEENT head/scalp atraumatic and moist oral mucous membranes Eyes conjunctivae normal and no scleral icterus Neck no lymphadenopathy and supple Resp normal respiratory effort Effort and Inspection: able to speak in complete sentences and symmetric chest movement Auscultation: diminished lung sounds Cardio regular rate, regular rhythm, S1 normal heart sound and S2 normal heart sound GI Inspection: central obesity and pannus present Auscultation: hypoactive bowel sounds Palpation: tender Extremity normal to inspection and full ROM Skin Skin Narrative: Surgical dressing intact Neuro oriented x3, moves all extremities, no focal motor deficits and no sensory deficits noted Psych thought process normal and cooperative Psych Narrative: Patient verbalizes frustration at current medical issues Assessment & Plan Assessment/Plan (1) Hypertension: PLAN: Plan 1. Hypertension -Every 6 hours enalapril IV ordered -As needed hydralazine ordered for systolic blood pressure greater than 140 -Nursing to notify hospitalist service if blood pressure greater than 140 -Patient n.p.o. we will hold hydralazine 2. Fibromyalgia -Continue amitriptyline, gabapentin, topiramate, venlafaxine 3. Left ovarian endometrioma, extensive endometriosis of bowel adhesion to left ovary -Postsurgical management per Dr. Michael -Estimated blood loss 200 cc patient will receive repeat CBC at 1800, 2100 and will [address] Michael orders DVT prophylaxis-SCDs This patient was seen by Keren Hitchcock, JENN-C under the supervision of Dr. Wade. 14 minutes spent in clinical coordination of patient's plan of care. Documented by User: Dr. Guanako Wade, 04/21/22 19:10 Objective Data Lab / Micro Data Result Diagrams: 04/21/22 18:24 04/21/22 12:35 Assessment & Plan Assessment/Plan (1) Hypertension: Charges/Coding Addendum Addendum: Patient was seen and examined today independently of Lizeth Hitchcock, she underwent a laparoscopic resection of part of her ovary today and there was abnormal bleeding during the procedure with oozing, the bleeding was finally controlled and she is on PCU for close postop care. Patient has a history of hypertension, she takes hydrochlorothiazide at home, she also has a history of morbid obesity and fibromyalgia. At this time patient is complaining of abdominal pain but she is drowsy and falls asleep easily during my conversation. Her mother is in the room and I briefly talked with her about her care. I also talked with Dr. Fleming and Dr. Harrington and confirmed that the patient is able to have chips and sips. On examination she appeared drowsy but responded appropriately to questions, she appears to have some postop pain. Patient is morbidly obese. Vital signs as documented. Skin warm and dry and without overt rashes. Neck without JVD, thyroid appears normal, trachea is midline, neck is supple. Lungs clear, normal air movement was noted. Heart exam notable for regular rhythm, normal sounds and absence of murmurs, rubs or gallops. Extremities nonedematous, no cyanosis was noted, no clubbing was noted. Neuro: Cranial nerves II through XII are grossly intact, no focal motor deficits were noted, sensation to light touch and pinprick is intact, motor exam 5/5 throughout. Psych: Patient is alert and oriented x3, she does not appear anxious or depressed, she does not appear agitated. Impression: #1 essential hypertension-patient will be placed on enalapril 1.25 mg every 6 hours IV, blood pressure will be maintained between 100- 140 systolic. #2 morbid obesity-complicates care, prognosis, and recovery #3 fibromyalgia-patient is currently on gabapentin 3 times daily #4 chronic depression-patient is on Effexor XR I have reviewed Lizeth Hitchcock's progress note including her medical assessment and plan of care and with the above additions endorse it. Total clinical time spent by myself addressing the patient's medical issues, reviewing the data, and collaborating with the patient's care team: 25 minutes Visit Charges Inpatient E&M: 64544 Subs Hosp L3
[2022-04-21] MEDS: Enalaprilat 1.25 MG/ML Vial IV (18:23)
[2022-04-21] MEDS: 0.9% Saline Lock 10 ML Syringe IV (18:23)
[2022-04-21] MEDS: Morphine 4 MG/ML Syringe IV (18:23)
--- NOTE | 2022-04-21 18:33 | OP.PCM_ITS ---
Problems Associated Problem List Diagnoses (1) Endometriosis: (2) Ovarian cyst, left: Report of Operation Date of Procedure: 04/21/22 Pre-Operative Diagnosis: Left ovary and endometrioma adhesions to large bowel and retroperitoneum Post-Operative Diagnosis: Same Surgery/Procedure Performed:: Laparoscopic lysis of adhesions with subsequent television production assistant with partial left oophorectomy Description of Surgical Findings:: I was asked to assist Dr. Michael during her procedure. There was concern about adhesions of colon to the left ovary/endometrioma. Upon my arrival the patient was under general anesthesia and a low lithotomy position. There were was a 10 mm port site in the umbilicus and a 5 mm port site in the left lower quadrant. We added an additional 5 mm port site in the right lower quadrant and a 5 mm port site more laterally in the left lower quadrant. There appeared to be a reasonably dense inflammatory response to the left ovary/endometrioma. Tediously and carefully using sharp dissection were indicated and blunt dissection I try to identify the course of the sigmoid colon. Where needed peritoneal attachments were sharply transected. Blunt dissection was used. Slowly became apparent that the left ovary endometrioma could be partially identified at least its anterior surface but it was densely adherent to the retroperitoneum. Most but not all of the attachments to the sigmoid colon could be identified and carefully freed. It became apparent that a complete oophorectomy was not going to be feasible due to the continued adhesions adherence to the retroperitoneum and still inflammatory changes adjacent to the colon. At that point it was elected to do a partial oophorectomy in the anterior component was resected per Dr. Michael. Where possible debris was removed and indirect components of the ovary stripped free. These fragments were removed. In so doing there was diffuse oozing with potential source not clearly identified. I then assisted with placing [address] Ray-Chen gauze in place 1 at the bladder portion of my dissection and 1 at the ovarian portion and pressure was held for hemostasis. The bladder peritoneal component responded favorably. The ovary incompletely and was still oozing. At this point consideration was made for ongoing treatment. It was not felt that the pedicle of the ovary could be cleanly identified without risking injury to the left ureter. It was not felt by me that I was going to be able to further assist with lysing adhesions and identifying the ovary/endometrioma separate from retroperitoneal structures. We discussed conversion to an open technique. In another option I applied Floseal and fibrillar to the ovary and bladder area of dissection again held pressure we observed for an extended period of time and hemostasis had indeed been achieved. I have requested the anesthesia that they assist with therapeutic hypotension or rather better blood pressure control. The abdomen was allowed to deflate of the CO2 several minutes were allowed to pass and the abdomen was reinsufflated and again there was no evidence of any ongoing bleeding. At this point I advised that I felt that the risk-benefit ratio was in her favor not to convert to an open procedure as I felt that the patient's body habitus offered significant morbidity with a BMI of 50.7 and I felt that there was also still no guarantee that through an open approach that a safe total left nephrectomy could be achieved. I felt that the coagulation product had indeed worked and that with careful postoperative monitoring with hospitals and port and blood pressure control and serial hemoglobins that that would be the less risky of the [address] Michael agreed that this was a reasonable approach and she then completed the procedure. It is of note that there was no evidence of any bowel injury during the procedure and the degree of blood loss was reasonable for the dissection performed and certainly not excessive. As commented upon hemostasis was achieved at the completion of the procedure. Db Fleming M.D., F.A.C.S. Surgeon: Db Fleming Type of Anesthesia: General Anesthesiologist: Samson Guzmán
[2022-04-21 18:44] LABS: Hematocrit 42.5 % (37-47); Mean Corp Hgb Conc 32.9 g/dL (32-36); Mean Corpuscular Hgb 29.4 pg (27.0-32.0); Mean Corpuscular Volume 89.1 fL (81-99); Mean Platelet Vol. 8.8 fl (6.2-12.0); Platelet Count 272 K/mm3 (150-450); RBC Distribution Width CV 14.8 % (11.6-14.6); RBC Distribution Width SD 47.9 fl (35.1-43.9); Red Blood Count 4.77 M/mm3 (4.2-5.4); White Blood Count 16.6 K/mm3 (4.4-11.0)
[2022-04-21] MEDS: Ondansetron ODT 4 MG Tablet PO (19:59)
[2022-04-21] MEDS: oxyCODONE 5 MG Tablet PO (19:59)
[2022-04-21] MEDS: Topiramate 50 MG Tablet PO (20:01)
[2022-04-21] MEDS: Amitriptyline 100 MG Tablet 50 MG PO (20:01)
[2022-04-21] MEDS: Docusate Sodium 100 MG Capsule PO (20:02)
[2022-04-21] MEDS: Gabapentin 400 MG Capsule PO (20:10)
[2022-04-21 22:36] LABS: Prothrombin Time (Protime)PT. 13.2 SECONDS (11.7-14.9)
[2022-04-21 22:41] LABS: Hematocrit 41.5 % (37-47); Hemoglobin 13.6 g/dL (12.0-15.0); Mean Corp Hgb Conc 32.8 g/dL (32-36); Mean Corpuscular Hgb 29.2 pg (27.0-32.0); Mean Corpuscular Volume 89.2 fL (81-99); Mean Platelet Vol. 9.2 fl (6.2-12.0); Platelet Count 267 K/mm3 (150-450); RBC Distribution Width CV 14.6 % (11.6-14.6); RBC Distribution Width SD 47.8 fl (35.1-43.9); Red Blood Count 4.65 M/mm3 (4.2-5.4); White Blood Count 14.9 K/mm3 (4.4-11.0)
[2022-04-22] VITALS (8 sets, daily range): BP systolic 99–123; BP diastolic 64–77; PULSE 87–101; RESP 12–16; TEMP 36.6–37.1; O2SAT 95–100
[2022-04-22] MEDS: Acetaminophen 500 MG Tablet 1000 MG PO ×3 (00:17→11:03)
[2022-04-22] MEDS: oxyCODONE 5 MG Tablet PO ×4 (00:18→14:53)
[2022-04-22] MEDS: Gabapentin 400 MG Capsule PO (05:18)
[2022-04-22] MEDS: Enalaprilat 1.25 MG/ML Vial IV ×2 (05:20→11:03)
[2022-04-22 06:17] LABS: Hematocrit 40.3 % (37-47); Hemoglobin 13.3 g/dL (12.0-15.0); Mean Corpuscular Hgb 29.2 pg (27.0-32.0); Mean Corpuscular Volume 88.4 fL (81-99); Mean Platelet Vol. 8.7 fl (6.2-12.0); Platelet Count 283 K/mm3 (150-450); RBC Distribution Width CV 14.6 % (11.6-14.6); RBC Distribution Width SD 46.8 fl (35.1-43.9); Red Blood Count 4.56 M/mm3 (4.2-5.4); White Blood Count 13.2 K/mm3 (4.4-11.0)
--- NOTE | 2022-04-22 06:35 | PCM.PN.SRG ---
Subjective Subjective Patient states that she is feeling flushed in the face and lightheaded. Abdominal discomfort is tolerable. Her IV is not been running overnight. She is producing good amount of urine which is clear per Jesus. She has been taking sips and chips. She states he was just sitting up prior to my arrival Objective Data Objective Data Vital Signs: Vital Signs Temp Pulse Resp BP Pulse Ox 97.9 F 91 16 111/75 95 04/22/22 05:00 04/22/22 05:00 04/22/22 05:00 04/22/22 05:00 04/22/22 05:00 Oxygen Flow Rate (L/min) 1 Oxygen Delivery Method Nasal Cannula Weight: 295 lb 3.183 oz Body Mass Index (BMI) 50.6 Intake & Output: Intake and Output for Last 24 Hours 04/20/22 04/21/22 04/22/22 23:59 23:59 23:59 Intake Total 1007.5 / 1087.5 80 / 80 Output Total 340 / 1440 1100 / 1100 Balance 667.5 / -352.5 -1020 / -1020 Lab / Micro Data Result Diagrams: 04/22/22 05:40 04/21/22 12:35 Labs: Laboratory Results - last 24 hr 04/21/22 12:35: Sodium 140, Potassium 3.3 L, Chloride 108 H, Carbon Dioxide 25.0, Anion Gap 7, BUN 15, Creatinine 0.78, Estim Creat Clear Calc 89.41, Est GFR (MDRD) Af Amer 110, Est GFR (MDRD) Non-Af 91, BUN/Creatinine Ratio 19.3, Glucose 86, Calcium 8.9 04/21/22 12:35: WBC 9.0, RBC 4.94, Hgb 14.3, Hct 43.0, MCV 87.0, MCH 28.9, MCHC 33.3, RDW Std Deviation 46.0 H, RDW Coeff of Va 14.6, Plt Count 288, MPV 8.8 04/21/22 12:35: Blood Type A POSITIVE, Antibody Screen NEGATIVE 04/21/22 16:15: WBC 11.3 H, RBC 4.79, Hgb 13.9, Hct 42.6, MCV 88.9, MCH 29.0, MCHC 32.6, RDW Std Deviation 47.8 H, RDW Coeff of Va 14.7 H, Plt Count 250, MPV 8.5 04/21/22 18:24: WBC 16.6 H, RBC 4.77, Hgb 14.0, Hct 42.5, MCV 89.1, MCH 29.4, MCHC 32.9, RDW Std Deviation 47.9 H, RDW Coeff of Va 14.8 H, Plt Count 272, MPV 8.8 04/21/22 21:40: WBC 14.9 H, RBC 4.65, Hgb 13.6, Hct 41.5, MCV 89.2, MCH 29.2, MCHC 32.8, RDW Std Deviation 47.8 H, RDW Coeff of Va 14.6, Plt Count 267, MPV 9.2 04/21/22 21:40: PT 13.2, INR 1.0, APTT 24.0 L 04/22/22 05:40: WBC 13.2 H, RBC 4.56, Hgb 13.3, Hct 40.3, MCV 88.4, MCH 29.2, MCHC 33.0, RDW Std Deviation 46.8 H, RDW Coeff of Va 14.6, Plt Count 283, MPV 8.7 Assessment & Plan Assessment/Plan (1) Endometriosis: (2) Ovarian cyst, left: PLAN: Plan Current blood pressure is stable at 122/71. Coagulation factors were normal. On April 21, 2022 hemoglobin is 13.9 and is currently 13.3. Difficult to know if this is clinically significant. I would think it reasonable at this time to initiate a diet. Db Fleming M.D., F.A.C.S.
--- NOTE | 2022-04-22 08:06 | PCM.PN.OB ---
Subjective Subjective Patient doing well without complaints other than residual pain. Tolerating PO liquid diet and states has ordered a full regular diet. Feeding well. Denies chest pain, shortness of breath, calf pain/swelling, fevers, chills, lightheadedness. Objective Data Objective Data Vital Signs: Vital Signs Temp Pulse Resp BP Pulse Ox 97.9 F 94 16 111/75 95 04/22/22 05:00 04/22/22 07:00 04/22/22 05:00 04/22/22 05:00 04/22/22 05:00 Oxygen Flow Rate (L/min) 1 Oxygen Delivery Method Nasal Cannula Weight: 295 lb 3.183 oz Body Mass Index (BMI) 50.6 Intake & Output: Intake and Output for Last 24 Hours 04/20/22 04/21/22 04/22/22 23:59 23:59 23:59 Intake Total 1007.5 / 1087.5 120 / 120 Output Total 340 / 1440 1600 / 1600 Balance 667.5 / -352.5 -1480 / -1480 Lab / Micro Data Attestation: I reviewed the patient's lab results. Result Diagrams: 04/22/22 05:40 04/21/22 12:35 Labs: Laboratory Results - last 24 hr 04/21/22 12:35: Sodium 140, Potassium 3.3 L, Chloride 108 H, Carbon Dioxide 25.0, Anion Gap 7, BUN 15, Creatinine 0.78, Estim Creat Clear Calc 89.41, Est GFR (MDRD) Af Amer 110, Est GFR (MDRD) Non-Af 91, BUN/Creatinine Ratio 19.3, Glucose 86, Calcium 8.9 04/21/22 12:35: WBC 9.0, RBC 4.94, Hgb 14.3, Hct 43.0, MCV 87.0, MCH 28.9, MCHC 33.3, RDW Std Deviation 46.0 H, RDW Coeff of Va 14.6, Plt Count 288, MPV 8.8 04/21/22 12:35: Blood Type A POSITIVE, Antibody Screen NEGATIVE 04/21/22 16:15: WBC 11.3 H, RBC 4.79, Hgb 13.9, Hct 42.6, MCV 88.9, MCH 29.0, MCHC 32.6, RDW Std Deviation 47.8 H, RDW Coeff of Va 14.7 H, Plt Count 250, MPV 8.5 04/21/22 18:24: WBC 16.6 H, RBC 4.77, Hgb 14.0, Hct 42.5, MCV 89.1, MCH 29.4, MCHC 32.9, RDW Std Deviation 47.9 H, RDW Coeff of Va 14.8 H, Plt Count 272, MPV 8.8 04/21/22 21:40: WBC 14.9 H, RBC 4.65, Hgb 13.6, Hct 41.5, MCV 89.2, MCH 29.2, MCHC 32.8, RDW Std Deviation 47.8 H, RDW Coeff of Va 14.6, Plt Count 267, MPV 9.2 04/21/22 21:40: PT 13.2, INR 1.0, APTT 24.0 L 04/22/22 05:40: WBC 13.2 H, RBC 4.56, Hgb 13.3, Hct 40.3, MCV 88.4, MCH 29.2, MCHC 33.0, RDW Std Deviation 46.8 H, RDW Coeff of Va 14.6, Plt Count 283, MPV 8.7 ROS Constitutional Constitutional: Reports as per HPI Cardiovascular Cardiovascular: Denies edema or palpitations Respiratory/Chest Respiratory/Chest: Reports as per HPI Gastrointestinal Gastrointestinal: Reports abdominal pain and cramping; Denies belching, bloating, diarrhea, heartburn, nausea or vomiting Musculoskeletal Musculoskeletal: Denies back pain or extremity pain Physical Exam Const alert, oriented x3 and no apparent distress Chest inspection of chest normal Chest: symmetrical chest wall rise Resp normal respiratory effort and normal air movement Cardio regular rate and regular rhythm GI normal to inspection, nondistended, normoactive bowel sounds GI Narrative: incisions are clean, dry, intact Inspection: incision intact and healing well Palpation: soft and tender; Negative for guarding, rigid or rebound tenderness present Percussion: normal to percussion Bladder / Kidney Exam: catheter in place Extremity General Extremity: normal exam except as noted and edema bilateral (trace bilateral edema, no pitting ) Assessment & Plan (1) Hypertension: COMMENT: CONTROLLED WITH MED (2) Endometriosis: (3) Morbid obesity: (4) Ovarian cyst, left: PLAN: Plan patient is s/p laparoscopic lysis of adhesions, left ovarian cystectomy POD 1 1. routine ERAS protocol postop care- increase ambulation, encourage oral intake and oral control of pain. scds for dvt prophylaxis, patient likely stable for discharge to home later today after rpt h/h one more time this afternoon.
[2022-04-22] MEDS: Venlafaxine XR 75 MG Capsule PO (09:31)
[2022-04-22] MEDS: Multivitamins,Therapeutic Tablet 1 TABLET PO (09:32)
[2022-04-22] MEDS: Docusate Sodium 100 MG Capsule PO (09:32)
[2022-04-22] MEDS: Topiramate 50 MG Tablet PO (09:33)
--- NOTE | 2022-04-22 09:49 | PN.HOSP_ITS ---
Subjective Subjective Patient was seen and examined today, her blood pressure appears under adequate control at this time, I talked briefly with BOILER MAKER about her care-patient appears medically stable from my standpoint for discharge home. I recommended that she go back on her home medication for blood pressure and the rest of her home medications. Objective Data Objective Data Vital Signs: Vital Signs Temp Pulse Resp BP Pulse Ox 97.9 F 94 16 111/75 95 04/22/22 05:00 04/22/22 07:00 04/22/22 05:00 04/22/22 05:00 04/22/22 05:00 Oxygen Flow Rate (L/min) 1 Oxygen Delivery Method Nasal Cannula Weight: 133.9 kg Body Mass Index (BMI) 50.6 Intake & Output: Intake and Output for Last 24 Hours 04/20/22 04/21/22 04/22/22 23:59 23:59 23:59 Intake Total 1007.5 / 1087.5 360 / 360 Output Total 340 / 1440 2450 / 2450 Balance 667.5 / -352.5 -2090 / -2090 Lab / Micro Data Result Diagrams: 04/22/22 05:40 04/21/22 12:35 Labs: Laboratory Results - last 24 hr 04/21/22 12:35: Sodium 140, Potassium 3.3 L, Chloride 108 H, Carbon Dioxide 25.0, Anion Gap 7, BUN 15, Creatinine 0.78, Estim Creat Clear Calc 89.41, Est GFR (MDRD) Af Amer 110, Est GFR (MDRD) Non-Af 91, BUN/Creatinine Ratio 19.3, Glucose 86, Calcium 8.9 04/21/22 12:35: WBC 9.0, RBC 4.94, Hgb 14.3, Hct 43.0, MCV 87.0, MCH 28.9, MCHC 33.3, RDW Std Deviation 46.0 H, RDW Coeff of Va 14.6, Plt Count 288, MPV 8.8 04/21/22 12:35: Blood Type A POSITIVE, Antibody Screen NEGATIVE 04/21/22 16:15: WBC 11.3 H, RBC 4.79, Hgb 13.9, Hct 42.6, MCV 88.9, MCH 29.0, MCHC 32.6, RDW Std Deviation 47.8 H, RDW Coeff of Va 14.7 H, Plt Count 250, MPV 8.5 04/21/22 18:24: WBC 16.6 H, RBC 4.77, Hgb 14.0, Hct 42.5, MCV 89.1, MCH 29.4, MCHC 32.9, RDW Std Deviation 47.9 H, RDW Coeff of Va 14.8 H, Plt Count 272, MPV 8.8 04/21/22 21:40: WBC 14.9 H, RBC 4.65, Hgb 13.6, Hct 41.5, MCV 89.2, MCH 29.2, MCHC 32.8, RDW Std Deviation 47.8 H, RDW Coeff of Va 14.6, Plt Count 267, MPV 9.2 04/21/22 21:40: PT 13.2, INR 1.0, APTT 24.0 L 04/22/22 05:40: WBC 13.2 H, RBC 4.56, Hgb 13.3, Hct 40.3, MCV 88.4, MCH 29.2, MCHC 33.0, RDW Std Deviation 46.8 H, RDW Coeff of Va 14.6, Plt Count 283, MPV 8.7 Physical Exam Const alert, oriented x3 and no apparent distress Constitutional Narrative: Patient is morbidly obese HEENT head/scalp atraumatic and moist oral mucous membranes Eyes conjunctivae normal Neck supple and no JVD Cardio regular rate, regular rhythm, S1 normal heart sound, S2 normal heart sound, no murmurs, no rub and no gallops Extremity normal to inspection and no clubbing, cyanosis or edema Neuro oriented x3, CN's II-XII intact bilaterally, moves all extremities, no focal motor deficits and no sensory deficits noted Psych affect normal Assessment & Plan Assessment/Plan (1) Hypertension: PLAN: Plan 1. Essential hypertension-again patient is stable for discharge medically, she should resume her home blood pressure medication #2 fibromyalgia-patient will resume her gabapentin #3 morbid obesity #4 chronic depression/anxiety-patient is on Effexor XR, she will resume this as an outpatient Charges/Coding Visit Charges OBSV E&M: 89120 Subsequent observation care L2
[2022-04-22 12:44] LABS: Hematocrit 42.9 % (37-47); Mean Corp Hgb Conc 32.6 g/dL (32-36); Mean Platelet Vol. 8.8 fl (6.2-12.0); Platelet Count 338 K/mm3 (150-450); RBC Distribution Width CV 14.6 % (11.6-14.6); RBC Distribution Width SD 47.4 fl (35.1-43.9); Red Blood Count 4.82 M/mm3 (4.2-5.4)
== END 2022-04-22 12:57 | disposition home or self-care (01) ==
LOC: SDC 16:10 → MS3 16:10 → PCU 16:51
PROVIDERS: Anesthesiology; Surgery; Admitting Provider Obstetrics & Gynecology; PCP Family Medicine; Referring Provider Obstetrics & Gynecology; Visit Provider Obstetrics & Gynecology
PROC: (CPT 58661; principal; 2022-04-21 13:15)
DX: N83.292 Other ovarian cyst, left side (principal); E66.01 Morbid (severe) obesity due to excess calories; Z68.43 Body mass index [BMI] 50.0-59.9, adult; F32.A Depression, unspecified; Z87.891 Personal history of nicotine dependence; N73.6 Female pelvic peritoneal adhesions (postinfective); I10 Essential (primary) hypertension; N93.9 Abnormal uterine and vaginal bleeding, unspecified; Z79.899 Other long term (current) drug therapy; F41.9 Anxiety disorder, unspecified; M79.7 Fibromyalgia; N80.9 Endometriosis, unspecified; Z86.16 Personal history of COVID-19; R06.02 Shortness of breath; N80.1 Endometriosis of ovary
CPT/HCPCS: 58662; 00840; 36415; 80048; 85027; 85610; 85730; 86850; 86900; 86901; 88305; 93005; 94762; 96374; 96375; 96376; 99218; 99251; J7120; A4216; G0378; G0463; J2405

== ENCOUNTER → 2023-05-23 | Outpatient (CLI) | payer MEDICAID, SELFPAY ==
--- NOTE | 2023-05-23 16:09 | US_ITS ---
EXAM: US PELVIS TRANSABDOMINAL AND TRANSVAGINAL, COMPLETE CLINICAL INDICATION: pelvic pain TECHNIQUE: Transabdominal and transvaginal pelvic ultrasound was performed with grayscale and color Doppler imaging. Transvaginal imaging was used for better evaluation of the endometrium and adnexa. COMPARISON: No relevant prior studies available. FINDINGS: UTERUS/CERVIX: Hysterectomy. RIGHT OVARY: Cystic area measuring 3.1 x 1.7 x 3.3 cm right ovary with numerous thin septations within it. Blood flow is present in the right ovary. The right ovary measures 3.4 x 2.4 x 2.7 cm. LEFT OVARY: Unremarkable. Blood flow is present in the left ovary. The left ovary measures 4.3 x 2.8 x 2.8 cm. FREE FLUID: None. BLADDER: Unremarkable as visualized. Wall is normal thickness for degree of distention. US/Pelvic (Non ) IMPRESSION: 1. Hysterectomy. 2. Cystic area measuring 3.1 x 1.7 x 3.3 cm right ovary with numerous thin septations within it. This may be due to a hemorrhagic cyst. Consider follow-up in 6 weeks. No signs of torsion. Electronically Signed: Ludin Chino MD at 6:31 EDT ,
== END | disposition home or self-care (01) ==
LOC: US 16:05
PROVIDERS: PCP Student in an Organized Health Care Education/Training Program; Referring Provider Obstetrics & Gynecology; Visit Provider Obstetrics & Gynecology
DX: R10.2 Pelvic and perineal pain (principal)
CPT/HCPCS: 76830; 76856; 93976

== ENCOUNTER 2024-06-14 09:31 | Outpatient (CLI) | payer MEDICAID, SELFPAY ==
[2024-06-14 10:42] LABS: Absolute Neutrophil Count 5.4 X10^3/uL (2.0-7.7); Basophil# 0.05 X10^3/uL; Basophil% 0.5 % (0-1); Eosinophil# 0.09 X10^3/uL; Eosinophils% 0.9 % (0-5); Hematocrit 43.8 % (37-47); Hemoglobin 14.1 g/dL (12.0-15.0); Lymphocyte % 37.6 % (19-41); Mean Corp Hgb Conc 32.2 g/dL (32-36); Mean Corpuscular Hgb 28.4 pg (27.0-32.0); Mean Corpuscular Volume 88.1 fL (81-99); Mean Platelet Vol. 8.9 fl (6.2-12.0); Monocyte# 0.88 X10^3/uL; Monocyte% 8.5 % (0-10); NRBC Flagged by Analyzer 0 % (0-5); Neutrophil # 5.43 X10^3/uL (2.7-7.7); Neutrophil % 52.2 % (47-70); Platelet Count 316 K/mm3 (150-450); RBC Distribution Width CV 14.3 % (11.6-14.6); RBC Distribution Width SD 45.6 fl (35.1-43.9); Red Blood Count 4.97 M/mm3 (4.2-5.4); White Blood Count 10.4 K/mm3 (4.4-11.0)
[2024-06-14 11:51] LABS: AST(SGOT) 11 U/L (15-37); Alanine Aminotransfer ALT/SGPT 25 U/L (13-56); Albumin, Serum 3.6 g/dL (3.2-5.0); Alkaline Phosphatase 65 U/L (45-117); Anion Gap 10 (5-15); BUN 15 mg/dL (7-18); BUN/Creat Ratio 23.8 RATIO (10-20); CRP 6.66 mg/L (0.0-3.0); Calcium,Total 9.3 mg/dL (8.5-10.1); Chloride 107 mmol/L (98-107); Creatinine, Serum 0.63 mg/dL (0.55-1.02); EST Glomerular Filtration Rate 115 mL/min (>60); Est Glom Filt Rate - Afr Amer 139 mL/min (>60); Ferritin 78 ng/mL (8-252); Globulin 3.7 g/dL (2.2-4.2); Glucose 97 mg/dL (74-106); Iron 51 ug/dL (50-170); Iron Binding Capacity,Total 389 ug/dL (250-450); LDH 210 U/L (84-246); PERCENT IRON SATURATION 13.1 % (15.0-55.0); Potassium 3.5 mmol/L (3.5-5.1); Protein, Total 7.3 g/dL (6.4-8.2); Sodium Level 141 mmol/L (136-145)
[2024-06-14 13:55] LABS: Vitamin B12 748 pg/mL (211-911)
[2024-06-14 15:02] LABS: Erythrocyte Sedimentation Rate 13 mm/hr (0-30)
[2024-06-21 07:09] LABS: Anti-Centromere B Ab <0.2 AI (0.0-0.9); Anti-Chromatin <0.2 AI (0.0-0.9); Anti-Jo <0.2 AI (0.0-0.9); Anti-Mitochondrial AB <20.0 Units (0.0-20.0); Anti-Scleroderma-70 AB <0.2 AI (0.0-0.9); Anti-dsDNA Ab <1 IU/mL (0-9); Beef <0.10 kU/L (Class 0); Chocolate <0.10 kU/L (Class 0); Codfish <0.10 kU/L (Class 0); Corn <0.10 kU/L (Class 0); Egg, Whole <0.10 kU/L (Class 0); Milk (Cow) <0.10 kU/L (Class 0); Mussels <0.10 kU/L (Class 0); Peanut <0.10 kU/L (Class 0); Pork <0.10 kU/L (Class 0); SJOGREN'S Anti-SS-A test < 0.2 AI (0.0-0.9); SJOGREN'S Anti-SS-B test < 0.2 AI (0.0-0.9); Salmon <0.10 kU/L (Class 0); Shrimp 0.41 kU/L (Class I); Smith Ab <0.2 AI (0.0-0.9); Soybean <0.10 kU/L (Class 0); Tuna <0.10 kU/L (Class 0); Wheat <0.10 kU/L (Class 0)
[2024-06-22 05:07] LABS: ACCA 20 units (0-90); ALCA 44 units (0-60); AMCA 311 units (0-100); Albumin 3.9 g/dL (2.9-4.4); Alpha-1-Globulins 0.2 g/dL (0.0-0.4); Alpha-2-Globulins 0.9 g/dL (0.4-1.0); Angiotensin Convert Enzyme 37 U/L (14-82); Anti-Smooth Muscle ABS 5 Units (0-19); Ceruloplasmin 30.1 mg/dL (19.0-39.0); Copper, Serum or Plasma 126 ug/dL (80-158); Cytoplasmic Ab (C-ANCA) <1:20 titer (Neg:<1:20); Endomysial Antibody IgA Negative (Negative); Gamma Globulin 0.7 g/dL (0.4-1.8); Immunoglobulin A 123 mg/dL (87-352); Immunoglobulin E 27 IU/mL (6-495); Immunoglobulin G 798 mg/dL (586-1602); Immunoglobulin M 54 mg/dL (26-217); PROEL- TOTAL PROTEIN 6.9 g/dL (6.0-8.5); Perinuclear Ab (P-ANCA) <1:20 titer (Neg:<1:20); gASCA 16 units (0-50); t-Transglutaminase IgA <2 U/mL (0-3)
== END 2024-06-14 23:59 | disposition home or self-care (01) ==
PROVIDERS: PCP Student in an Organized Health Care Education/Training Program; Referring Provider Student in an Organized Health Care Education/Training Program; Visit Provider Student in an Organized Health Care Education/Training Program
DX: K52.9 Noninfective gastroenteritis and colitis, unspecified (principal)
CPT/HCPCS: 80053; 82164; 82390; 82525; 82607; 82652; 82728; 82746; 82784; 82785; 83516; 83540; 83550; 83615; 84165; 85025; 85652; 86003; 86005; 86036; 86140; 86225; 86235; 86255; 86256; 86334; 86671

== ENCOUNTER 2024-06-22 13:04 | Day surgery (SDC) | payer MEDICAID, SELFPAY ==
[2024-06-22] VITALS (7 sets, daily range): BP systolic 105–142; BP diastolic 60–91; PULSE 78–84; RESP 16–20; TEMP 37.1–37.6; O2SAT 98–100; BMI 50.3
--- NOTE | 2024-06-22 13:26 | PCM.PRE.AN2 ---
ASA Classification* ASA Classification ASA Classification: 3 Assessment & Plan Anesthesia* Anesthesia Assessment Anesthesia Assessment: Discussed sedation and/or anesthesia options, risks, benefits, and alternatives with patient/parents/legal guardian/POA. Questions invited. The patient/parents/legal guardian/POA seems to understand and agrees to proceed with anesthesia plan. Reviewed the physical assessment, medical history, allergy history and patient home medications list prior to surgery/procedure/anesthetic and documented any changes. Performed airway and anesthesia risk assessments. Anesthesia Type Anesthesia Type: MAC Anesthesia Focused Assessment* Airway Assessment Mouth opens: >3 cm Mallampati Score: II Focused Labs Anesthesia Preop lab: CBC WBC 10.4 K/mm3 (4.4-11.0) 06/14/24 09:46 RBC 4.97 M/mm3 (4.2-5.4) 06/14/24 09:46 Hgb 14.1 g/dL (12.0-15.0) 06/14/24 09:46 Hct 43.8 % (37-47) 06/14/24 09:46 Plt Count 316 K/mm3 (150-450) 06/14/24 09:46 CHEMISTRY Potassium 3.5 mmol/L (3.5-5.1) 06/14/24 09:46 Sodium 141 mmol/L (136-145) 06/14/24 09:46 BUN 15 mg/dL (7-18) 06/14/24 09:46 Creatinine 0.63 mg/dL (0.55-1.02) 06/14/24 09:46 Glucose 97 mg/dL (74-106) 06/14/24 09:46 COAG PT 13.2 SECONDS (11.7-14.9) 04/21/22 21:40 Urine Test Negative Negative 01/12/18 08:25 Pre-Assessment Diagnosis/Proposed Procedure Planned Operative Procedure(s): COLONOSCOPY, EGD Anesthesia History Anesthesia History - agent ticketing gate: Anesthesia History - agent ticketing gate Hx Hospitalization No 06/20/24 08:51 Any Problems With Anesthesia No 06/20/24 08:51 Cholinesterase deficiency No 06/20/24 08:51 You/Your Family Experience No 06/20/24 08:51 fever (hyperthermia) with Relationship Recent Exposure to Contagious No 04/29/22 13:30 Disease Does patient have nerve No 06/20/24 08:51 stimulator Patient instructed to have device shut off --Does patient have Pacemaker or ICD? When Was Last Pacemaker Check QUESTION #4 FULL TEXT: You/Your Family Experience fever (hyperthermia) with Anesthesia Last Oral Intake Last Oral intake: Last Oral Intake NPO since Meds taken in AM with sips of water? Meds patient instructed to take am of surgery PONV PONV - agent ticketing gate: PONV - agent ticketing gate Female Yes 06/20/24 08:51 HX of Motion Sickness No 06/20/24 08:51 HX of N/V After Surgery No 06/20/24 08:51 Non-Smoker Yes 06/20/24 08:51 Duration of Surgery greater No 06/20/24 08:51 than 60 minutes Number of Risk Factors 2 06/20/24 08:51 PONV Score Moderate Risk 06/20/24 08:51 Height & Weight Height & Weight: Anesthesia: Height & Weight Height 5 ft 4 in 05/10/22 10:42 Respiratory Assessment Respiratory Assessment - agent ticketing gate: Respiratory Tract Infection Hx - agent ticketing gate Hx Respiratory Tract Infection No 06/20/24 08:51 STOP Sleep Apnea STOP Sleep Apnea - agent ticketing gate: STOP Sleep Apnea - agent ticketing gate Hx Hypertension Yes: CONTROLLED WITH MED 06/20/24 08:51 Hx Sleep Apnea No 06/20/24 08:51 CPAP BIPAP Do you snore loudly (louder No 06/20/24 08:51 than talking or can be heard Do you often feel tired/ No 06/20/24 08:51 fatigued/ sleepy during daytime? Has anyone observed you stop No 06/20/24 08:51 breathing during sleep? STOP Results Negative 06/20/24 08:51 QUESTION #5 FULL TEXT : Do you snore loudly (louder than talking or can be heard through closed doors)? Tobacco Use History Tobacco Use History - agent ticketing gate: Tobacco Use History - agent ticketing gate Tobacco Use Smoking Status Former smoker 06/20/24 08:51 Hx Tobacco Use No 06/20/24 08:51 Years Smoking Packs Smoked per Day Smoking Cessation Date was Yes - quit smoking within 15 06/20/24 08:51 within the last 15 years years Hx Smoking Cessation Date 10/31/09 06/20/24 08:51 Hx Smoking Cessation Counseling Hematologic Medial History Hematologic Hx - agent ticketing gate: Hematologic Medical Hx - boat tester Hx of Blood Transfusion No 06/20/24 08:51 Hx of Transfusion in last 3 No 06/20/24 08:51 Months Date of Last Transfusion (if within last 3 months) Ever experience any problems No 06/20/24 08:51 with transfusion(s)? Specify any problems Hx of Preganancy in last 3 No 06/20/24 08:51 Months Nurse Filling Out Transfusion VCHRISTIN 06/20/24 08:51 & Questions: Date: 06/20/24 06/20/24 08:51 Time: 08:53 06/20/24 08:51 Patient unable to answer at this time (ie. confused, unrespo /Reproduction History /Reproductive History - agent ticketing gate: /Reproductive Hx- agent ticketing gate Hx Now Gestational Age (in weeks): EDC: Hx Hx Para Hx Section SAB No 06/20/24 08:51 Active Medications Active Medications: Current Medications Generic Name Dose Route Start Last Admin Trade Name Freq PRN Reason Stop Dose Admin Lactated Ringer's 1,000 mls @ 15 mls/hr 06/22/24 13:30 IV .Q48H MIGDALIA PFSH Medical History (Updated 06/20/24 @ 08:51 by Camila Glynn) Post-menopausal Back pain Gastric reflux Smoker Wears glasses Depression Anxiety COVID Easy bruising Migraine headache History of IBS Heartburn Former smoker Shortness of breath on exertion History of pain when walking History of edema Myocarditis History of echocardiogram Chest pain Hepatic adenoma Hypertension Endometriosis fibromylagia Anxiety and depression Home Medications ?Medication ?Instructions ?Recorded ?Last Taken ?Type multivitamin (Daily Multiple 1 ea PO DAILY 01/05/18 06/20/24 History tablet) venlafaxine 75 mg capsule,extended 75 mg PO DAILY 04/07/22 04/21/22 History release 24 hr (Effexor XR) naproxen sodium 220 mg capsule 220 mg PO BID PRN pain 05/10/22 Unknown History (Aleve) amlodipine 5 mg tablet 5 mg PO DAILY 03/23/24 Unknown History lisdexamfetamine 40 mg capsule 40 mg PO DAILY 03/23/24 Unknown History potassium chloride 20 mEq 20 meq PO DAILY 03/23/24 Unknown History tablet,extended release(part/cryst) (Klor-Con M) prazosin 1 mg capsule 1 mg PO QHS 03/23/24 Unknown History trazodone 50 mg tablet 50 mg PO QHS PRN sleep 03/23/24 Unknown History dicyclomine 10 mg capsule 10 mg PO TID #30 caps 06/14/24 Unknown Rx gabapentin 800 mg tablet 800 mg PO TID 06/14/24 Unknown History cetirizine 10 mg tablet (24Hour 10 mg PO DAILY PRN allergy symptoms 06/20/24 Unknown History Allergy) topiramate 100 mg tablet 100 mg PO BID 06/20/24 Unknown History Allergy/AdvReac Type Severity Reaction Status Date / Time stevioside (From Stevia) Allergy Severe Swelling Verified 06/20/24 08:39 Family History Mother Thyroid disorder Diabetes Grandmother Thyroid disorder Osteoporosis Breast cancer Father Hypertension Surgical History (Updated 06/20/24 @ 08:51 by Camila Glynn) Hx of oophorectomy H/O: hysterectomy History of left oophorectomy History of LAVH History of dental surgery History of tonsillectomy History of liver biopsy Social History Smoking Status: Former smoker alcohol intake: never substance use type: does not use caffeine: No what type of physical activity do you participate in: none seatbelt use: always do you feel safe at home: Yes additional social history: Single Review of Systems (Anesthesia) ROS Narrative System reviewed and no additional complaints, except as documented.
[2024-06-22] MEDS: Lactated Ringers 1,000 ML 15 ML IV (13:30)
--- NOTE | 2024-06-22 13:34 | PCM.HP.BLA ---
History and Physical Date of Admission: 06/22/24 abdominal pain Details: PORTIA GUERRA is a 34 F who presents to the office today for establishment with [facility]. She has a long history of GI symptoms including abdominal pain and diarrhea. Over the past couple of years her symptoms have become much worse. She has daily nausea without vomiting; there is no trigger. She tells me she has anywhere from 5-15 bm per day that are usually diarrhea. She does however have occasional constipation from her medications. She has tried food elimination diets such as diary free and gluten free without relief of symptoms. Low fodmap diet was somewhat helpful. At this point she is scared to eat so she has been drinking nutritional shakes instead. She has occasional heartburn but this is not as bothersome to her. She has never had an EGD or colonoscopy. She has joint pains. She tells me her mother and sister are autoimmune with rheumatoid arthritis, Uday thyroiditis, and type 1 diabetes. She saw GI at [facility] in 2017 and had a gallbladder US which did not show any abnormalities of the gallbladder but did happen to see some spots on the liver. She underwent further workup and was found to have adenomas on her liver. She sees [facility] for her endometriosis and gynecological problems. She is s/p hysterectomy and left oophorectomy. She tells me during her oophorectomy her bowel was wrapped around her ovary and she wonders if this is what caused all her GI symptoms. While filing out the ROS paper she circled yes for suicidal ideation. On interview with patient, she tells me she is in a lot of pain and sounds better than living in the pain. She does not currently have a plan and says she will not harm herself. She does see a psychiatry who prescribes her medication. She does counseling/therapy in an art therapy center here in [place]. ROS Const Constitutional: Positive for fatigue, headache(s), weakness and weight change (weight gain ); No fever(s) ENT ENT: Positive for headache(s); No difficulty swallowing Cardio Cardiology: Positive for leg pain with exertion Gastro GI: Positive for abdominal pain, bloating, change in bowel habits, constipation, diarrhea, heartburn, excessive flatus, Blood in stool and nausea/dyspepsia; No belching, change in stool character, coffee ground emesis, cramping, difficulty swallowing, feeling full early, incontinent of stools, Vomiting blood/hematemesis, loose stools, Black,tarry stools, pain with swallowing, vomiting or other Musc Musculoskeletal: Positive for joint pain, back pain, muscle cramps, muscle weakness, numbness, stiffness, tingling, sciatica, restless legs, leg pain at night and leg pain with exertion Skin Skin: No yellowing of the eye or itchy eyes Neuro Neurology: Positive for weakness, headache(s), numbness, tingling and restless legs Psych Psychiatric: Positive for anxiety, Positive for depression, Positive for hyperactivity, Positive for inattentiveness and Positive for suicidal ideation Endo Endocrine: Positive for fatigue and weight change (weight gain ) Aller/Imm Allergy/Immunologic: No itchy eyes Gildardo/Lymp Hematologic/Lymphatic: Positive for easy bruising; No easy bleeding Exam Const General: cooperative and comfortable Nutritional Appearance: average body habitus and well nourished HENMT Head: normal to inspection Ears: hearing grossly normal bilaterally Nose: external nose normal and mucous membranes and turbinates abnormal Face and sinus: normal facial exam Eyes General: appearance normal, both eyes and all related structures Neck Neck: normal visual inspection Chest Chest palpation & inspection: normal inspection of the chest Resp Effort & Inspection: normal respiratory effort Cardio Palpation: normal PMI GI Inspection: normal to inspection Palpation: no hepatosplenomegaly Skin General: no rashes or lesions noted Neuro General: patient alert Extrem General: normal to inspection Psych Affect: normal affect Assessment and Plan Assessment and Plan (1) Inflammatory bowel disease: Plan: Patient is here today for establishment with [facility] for long history of GI symptoms including diarrhea, abdominal pain, nausea and blood in her stool. She saw a GI at [facility] who ordered a gallbladder US without abnormalities of the gallbladder. She has never had full GI workup for IBD. Differential diagnosis includes IBD, IBS, EPI, gastroparesis, celiac, and IBS. -We will order blood testing with ESR, CRP, IBD panel, celiac panel, food allergens -Will also order stool tests; calprotectin, elastase and lactoferrin -Prescribed dicyclomine 10 mg PRN for her abdominal pain -She does not wish to treat her diarrhea as she does not want constipation -She will be scheduled for colonoscopy and EGD -She will f/u after we receive results -Addressed her suicidal ideation. She has no plan at this time and she will not harm herself. She sees a psychiatrist and does counseling. (2) Chronic diarrhea: Status: Chronic Orders: Orders ANCA Today K52.9 - Noninfective gastroenteritis and colitis, unspecified Angiotensin Convert Enzyme Today K52.9 - Noninfective gastroenteritis and colitis, unspecified Anti-Mitochondrial AB Today K52.9 - Noninfective gastroenteritis and colitis, unspecified Anti-Smooth Muscle ABS Today K52.9 - Noninfective gastroenteritis and colitis, unspecified CBC W/Diff, Automated Today K52.9 - Noninfective gastroenteritis and colitis, unspecified Celiac Disease Profile Today K52.9 - Noninfective gastroenteritis and colitis, unspecified Ceruloplasmin Today K52.9 - Noninfective gastroenteritis and colitis, unspecified Comprehensive Metabolic Profil Today K52.9 - Noninfective gastroenteritis and colitis, unspecified Copper, Serum or Plasma Today K52.9 - Noninfective gastroenteritis and colitis, unspecified Erythrocyte Sed Rate Today K52.9 - Noninfective gastroenteritis and colitis, unspecified CRP Today K52.9 - Noninfective gastroenteritis and colitis, unspecified LDH Today K52.9 - Noninfective gastroenteritis and colitis, unspecified Ferritin Today K52.9 - Noninfective gastroenteritis and colitis, unspecified Allergen, Food Profile 14 Today K52.9 - Noninfective gastroenteritis and colitis, unspecified Immunoglobulins G/A/M/E Today K52.9 - Noninfective gastroenteritis and colitis, unspecified Pancreatic Elastase, Fecal Today K52.9 - Noninfective gastroenteritis and colitis, unspecified Stool Lactoferrin/WBC Today K52.9 - Noninfective gastroenteritis and colitis, unspecified, K58.9 - Irritable bowel syndrome without diarrhea GILBERT + Protein Elect, Serum Today K52.9 - Noninfective gastroenteritis and colitis, unspecified IBD Expanded Profile Today K52.9 - Noninfective gastroenteritis and colitis, unspecified NENITA Comprehensive Panel Today K52.9 - Noninfective gastroenteritis and colitis, unspecified Vitamin D 1,25-Dihydroxy Today K52.9 - Noninfective gastroenteritis and colitis, unspecified Folates, (Folic Acid) Today K52.9 - Noninfective gastroenteritis and colitis, unspecified Iron+Iron Binding Capacity Today K52.9 - Noninfective gastroenteritis and colitis, unspecified Vitamin B12 Today K52.9 - Noninfective gastroenteritis and colitis, unspecified Calprotectin, Stool Today K52.9 - Noninfective gastroenteritis and colitis, unspecified Medications: New dicyclomine 10 mg PO TID 30 caps 3RF I have examined the patient and the H&P has been reviewed. There are no clinical changes since date of exam.
--- NOTE | 2024-06-22 14:15 | COLBX_PTH ---
PATIENT: PORTIA GUERRA LOC: EN U#:[id number] AGE/SX: 34/F ROOM: RE06/22/[address]: Dr. Sami Davis DO : 1990 BED: DIS: 06/22/2024 SPEC #: [id number] RECD: 06/25/24 07:13 STATUS: MATTHEW JOHANNY #: [id number] JOHN: 06/22/24 14:[address]: Sami Davis DEPT: SURGICAL PATHOLOGY RECD BY: Emerald Foy ENTERED: 06/25/24 09:27 SP TYPE: COLON BX OTHR DR: Dr. Selene Griffin MD Tissues: A - Gastric mucous membrane B - Duodenum, NOS C - Esophagus, NOS D - Ileum, NOS E - COLON BIOPSY Procedures: Special Stain Group I Surgery Specimen Level IV Alcian Blue/PAS (control) HEADER OPERATION: Colonoscopy, EGD with biopsies PRE-OP DIAGNOSIS: Inflammatory bowel disease TISSUE SUBMITTED: A- Gastric body biopsy, B- Duodenum biopsy, C- Distal esophagus biopsy,D-Terminal ileum biopsy, E- Random colon biopsy MICROSCOPIC DIAGNOSIS A. Gastric body, biopsy: Minimal chronic inflammation. See comment. B. Duodenum, biopsy: Minimal non-specific chronic inflammation. C. Distal esophagus, biopsy: Gastroesophageal junction mucosa with mild chronic inflammation. Focal changes of reflux. No evidence of goblet cell metaplasia. See comment. D. Terminal ileum, biopsy: No pathologic change. E. Colon, random biopsy: No pathologic change. AM. 06/26/2024 COMMENT A. The results of immunohistochemistry for Helicobacter pylori will be reported separately ([id number]). C. Alcian blue/PAS stain with matched control supports the above diagnosis. MICROSCOPIC DESCRIPTION Slides are reviewed. GROSS DESCRIPTION A. Received in fixative is one container labeled with the patient's name and designated Gastric body biopsy. The specimen consists of one irregular fragment of light day soft tissue that measures 0.8 x 0.2 x 0.1 cm. The specimen is totally submitted in one cassette. B. Received in fixative is one container labeled with the patient's name and designated Duodenum biopsy. The specimen consists of two irregular fragments of light day soft tissue that in aggregate measure 0.8 x 0.4 x 0.1 cm. The specimen is totally submitted in one cassette. C. Received in fixative is one container labeled with the patient's name and designated Distal esophagus biopsy. The specimen consists of multiple irregular fragments of light day soft tissue that in aggregate measure 0.8 x 0.3 x 0.1 cm. The specimen is totally submitted in one cassette. D. Received in fixative is one container labeled with the patient's name and designated Terminal ileum biopsy. The specimen consists of multiple irregular fragments of light day soft tissue that in aggregate measure 1.2 x 0.2 x 0.1 cm. The specimen is totally submitted in one cassette. E. Received in fixative is one container labeled with the patient's name and designated Random colon biopsy. The specimen consists of multiple irregular fragments of light day soft tissue that in aggregate measure 1.5 x 0.8 x 0.1 cm. The specimen is totally submitted in one cassette. SJ.mr 06/25/2024 TC:3 CPT:07495v1,50853
--- NOTE | 2024-06-22 14:15 | IMM_PTH ---
PATIENT: PORTIA GUERRA LOC: EN U#:[id number] AGE/SX: 34/F ROOM: RE06/22/[address]: Dr. Sami Davis DO : 1990 BED: DIS: 06/22/2024 SPEC #: [id number] RECD: 06/25/24 08:31 STATUS: MATTHEW REQ #: [id number] JOHN: 06/22/24 14:[address]: Sami Davis DEPT: IMMUNOHISTOCHEMISTRY RECD BY: Pato Carlos ENTERED: 06/25/24 08:31 SP TYPE: IMMUNO OTHR DR: Dr. Selene Griffin MD Tissues: A - Gastric mucous membrane Procedures: H Pylori (initial) PHYSICIAN & INSTITUTION [place] [id number] SPECIMEN INFORMATION: Tissue Source: A- Gastric body biopsy Clinical Info: Inflammatory bowel disease Specimen Number: [id number] CPT code: 70504 METHODOLOGY: Deparaffinized sections of prefer/formalin-fixed tissue or PAP/DQ stained slides are incubated with monoclonal/polyclonal antibodies/oligonucleotide probes. Localization is made via biotin free immunoperoxidase method. Appropriate controls are performed and reacted as expected. Results on target cell population are indicated in the following table: RESULTS: ANTIBODY / CLONE RESULT Block A H Pylori (polyclonal) negative These tests were developed and their performance characteristics determined by [facility]. They may not have been cleared or approved by the U.S. Food and Drug Administration. The FDA has determined that such clearance or approval is not necessary. The above immunohistochemical/dualISH markers are ordered and reviewed by the Pathologist. INTERPRETATION: A. Gastric body, biopsy: Negative for Helicobacter pylori organisms. SHI/ 06/27/2024
--- NOTE | 2024-06-22 15:10 | OP.CCLET_ITS ---
06/22/2024 Selene Griffin Md Re : Upper GI endoscopy procedure for Dustin Pandey Gaby This procedure was performed on Saturday, June 22, 2024. My impressions and recommendations are as follows: Impressions : - Reflux esophagitis with no bleeding. Biopsied. - A small amount of food (residue) in the stomach. - Chronic gastritis. Biopsied. - Normal second portion of the duodenum. Recommendations : - Discharge patient to home. - Resume previous diet. - Continue present medications. - Await pathology results. My findings are described in the full procedure note, which is enclosed. If I can be of further assistance, please feel free to contact me at . Sincerely, Sami Davis, 06/22/2024 3:10:07 PM This report has been signed electronically.
--- NOTE | 2024-06-22 15:10 | OP.EGD_ITS ---
Patient Name: Dustin Winter Procedure Date: 06/22/2024 2:30 PM Date of : 1990 Age: 34 Procedure: Upper GI endoscopy Indications: Epigastric abdominal pain Providers: Sami Davis DO Medicines: Monitored Anesthesia Care Patient Profile: This is a 34 year old female. Refer to note in patient chart for documentation of history and physical. Patient has symptoms of acute epigastric abdominal pain. Complications: No immediate complications. Procedure: Pre-Anesthesia Assessment: - Prior to the procedure, a History and Physical was performed, and patient medications and allergies were reviewed. The patient is competent. The risks and benefits of the procedure and the sedation options and risks were discussed with the patient. All questions were answered and informed consent was obtained. Patient identification and proposed procedure were verified by the physician in the pre-procedure area. Mental Status Examination: alert and oriented. Airway Examination: normal oropharyngeal airway and neck mobility. Respiratory Examination: clear to auscultation. CV Examination: normal. Prophylactic Antibiotics: The patient does not require prophylactic antibiotics. Prior Anticoagulants: The patient has taken no anticoagulant or antiplatelet agents except for NSAID medication. ASA Grade Assessment: II - A patient with mild systemic disease. After reviewing the risks and benefits, the patient was deemed in satisfactory condition to undergo the procedure. The anesthesia plan was to use monitored anesthesia care (MAC). Immediately prior to administration of medications, the patient was re-assessed for adequacy to receive sedatives. The heart rate, respiratory rate, oxygen saturations, blood pressure, adequacy of pulmonary ventilation, and response to care were monitored throughout the procedure. The physical status of the patient was re-assessed after the procedure. After obtaining informed consent, the endoscope was passed under direct vision. Throughout the procedure, the patient's blood pressure, pulse, and oxygen saturations were monitored continuously. The Colonoscope was introduced through the mouth, and advanced to the second part of duodenum. The upper GI endoscopy was accomplished without difficulty. The patient tolerated the procedure well. Scope In: 2:46:00 PM Scope Out: 2:50:24 PM Total Procedure Duration Time 0 hours 4 minutes 24 seconds Findings: Esophagitis with no bleeding was found 35 to 40 cm from the incisors. Biopsies were taken with a cold forceps for histology. A small amount of food (residue) was found in the gastric body. Patchy mild inflammation characterized by congestion (edema), erosions and erythema was found in the gastric body. Biopsies were taken with a cold forceps for histology. Verification of patient identification for the specimen was done. Biopsies were taken with a cold forceps for histology. Verification of patient identification for the specimen was done. Biopsies were taken with a cold forceps for Helicobacter pylori testing. Verification of patient identification for the specimen was done. Estimated blood loss was minimal. The second portion of the duodenum was normal. Impression: - Reflux esophagitis with no bleeding. Biopsied. - A small amount of food (residue) in the stomach. - Chronic gastritis. Biopsied. - Normal second portion of the duodenum. Recommendation: - Discharge patient to home. - Resume previous diet. - Continue present medications. - Await pathology results. Procedure Code(s): --- Professional --- 02512, Esophagogastroduodenoscopy, flexible, transoral; with biopsy, single or multiple CPT copyright 2021 [employer]. All rights reserved. The codes documented in this report are preliminary and upon permit specialist review may be revised to meet current compliance requirements. Sami Davis DO 06/22/2024 3:10:07 PM This report has been signed electronically. Number of Addenda: 0 Note Initiated On: 06/22/2024 2:30 PM
--- NOTE | 2024-06-22 15:13 | OP.CCLET_ITS ---
06/22/2024 Selene Griffin Md Re : Colonoscopy procedure for Dustin Pandey Gaby This procedure was performed on Saturday, June 22, 2024. My impressions and recommendations are as follows: Impressions : - Congested mucosa in the sigmoid colon, in the descending colon, at the splenic flexure and at the hepatic flexure. Biopsied. - Congested mucosa in the terminal ileum. Biopsied. Recommendations : - Discharge patient to home. - Resume regular diet. - Continue present medications. - Await pathology results. - Repeat colonoscopy is recommended for surveillance. The colonoscopy date will be determined after pathology results from today's exam become available for review. My findings are described in the full procedure note, which is enclosed. If I can be of further assistance, please feel free to contact me at . Sincerely, Sami Davis, 06/22/2024 3:12:59 PM This report has been signed electronically.
--- NOTE | 2024-06-22 15:13 | OP.COLON_ITS ---
Patient Name: Dustin Winter Procedure Date: 06/22/2024 2:50 PM Date of : 1990 Age: 34 Procedure: Colonoscopy Indications: Chronic diarrhea Providers: Sami Davis DO Medicines: Monitored Anesthesia Care Patient Profile: This is a 34 year old female. Refer to note in patient chart for documentation of history and physical. Patient has symptoms of acute epigastric abdominal pain. This is a 34 year old female. Refer to note in patient chart for documentation of history and physical. Last Colonoscopy: none. The patient's first colonoscopy is today. Complications: No immediate complications. Procedure: Pre-Anesthesia Assessment: - Prior to the procedure, a History and Physical was performed, and patient medications and allergies were reviewed. The patient is competent. The risks and benefits of the procedure and the sedation options and risks were discussed with the patient. All questions were answered and informed consent was obtained. Patient identification and proposed procedure were verified by the physician in the pre-procedure area. Mental Status Examination: alert and oriented. Airway Examination: normal oropharyngeal airway and neck mobility. Respiratory Examination: clear to auscultation. CV Examination: normal. Prophylactic Antibiotics: The patient does not require prophylactic antibiotics. Prior Anticoagulants: The patient has taken no anticoagulant or antiplatelet agents except for NSAID medication. ASA Grade Assessment: II - A patient with mild systemic disease. After reviewing the risks and benefits, the patient was deemed in satisfactory condition to undergo the procedure. The anesthesia plan was to use monitored anesthesia care (MAC). Immediately prior to administration of medications, the patient was re-assessed for adequacy to receive sedatives. The heart rate, respiratory rate, oxygen saturations, blood pressure, adequacy of pulmonary ventilation, and response to care were monitored throughout the procedure. The physical status of the patient was re-assessed after the procedure. After I obtained informed consent, the scope was passed under direct vision. Throughout the procedure, the patient's blood pressure, pulse, and oxygen saturations were monitored continuously. The Colonoscope was introduced through the anus and advanced to the terminal ileum. The colonoscopy was performed without difficulty. The patient tolerated the procedure well. The quality of the bowel preparation was adequate. The terminal ileum, ileocecal valve, appendiceal orifice, and rectum were photographed. Scope In: 2:52:42 PM Scope Withdrawal Time 0 hours 8 minutes 8 seconds Scope Out: 3:03:39 PM Total Procedure Duration Time 0 hours 10 minutes 57 seconds Findings: The perianal and digital rectal examinations were normal. An area of mildly congested mucosa was found in the sigmoid colon, in the descending colon, at the splenic flexure and at the hepatic flexure. Biopsies were taken with a cold forceps for histology. Verification of patient identification for the specimen was done. Estimated blood loss was minimal. A localized area of the terminal ileum was congested. Biopsies were taken with a cold forceps for histology. Impression: - Congested mucosa in the sigmoid colon, in the descending colon, at the splenic flexure and at the hepatic flexure. Biopsied. - Congested mucosa in the terminal ileum. Biopsied. Recommendation: - Discharge patient to home. - Resume regular diet. - Continue present medications. - Await pathology results. - Repeat colonoscopy is recommended for surveillance. The colonoscopy date will be determined after pathology results from today's exam become available for review. Procedure Code(s): --- Professional --- 82228, Colonoscopy, flexible; with biopsy, single or multiple CPT copyright 2021 [employer]. All rights reserved. The codes documented in this report are preliminary and upon corrosion control technician review may be revised to meet current compliance requirements. Sami Davis DO 06/22/2024 3:12:59 PM This report has been signed electronically. Number of Addenda: 0 Note Initiated On: 06/22/2024 2:50 PM
--- NOTE | 2024-06-22 15:14 | PCM.POST.ANE ---
Anesthesia: Postop Eval I Current Vital Signs Temperature: 98.7 F Pulse Rate: 84 Blood Pressure: 132/71 Respiratory Rate: 16 Pulse Ox: 100 Oxygen Delivery Method: Room Air Assessment Airway patent: Yes Spontaneous unlabored respirations: Yes Mental status: Awake and Calm nausea: No Vomiting: No Anesthesia Complication: No Fluid Hydration Crystalloid volume administer (ml): 600 Total IV fluid infused: 600 Progress Note Anesthesia document: Postop Eval 1 completed: Yes
--- NOTE | 2024-06-22 17:10 | PCM.POSTANE2 ---
Anesthesia Postop Eval I Sum Postop Eval Completion status Anesthesia document: Postop Eval 1 completed: Yes Anesthesia Postop Eval I Summary Anesthesia Postop Eval I Summary: Anesthesia Postop Eval I: Assessment Summary Airway patent Yes 06/22/24 15:14 [email or web address] Spontaneous unlabored Yes 06/22/24 15:14 [email or web address] respirations Mental status Awake,Calm 06/22/24 15:14 [email or web address] nausea No 06/22/24 15:14 [email or web address] Vomiting No 06/22/24 15:14 [email or web address] Anesthesia Postop Eval I: Fluid Summary Crystalloid volume administer 600 06/22/24 15:14 [email or web address] (ml) Colloids volume administered ( ml) Blood Product volume administered (ml) Total IV fluid infused 600 06/22/24 15:14 [email or web address] Anesthesia Postop Eval I: Summary Notes Anesthesia Complication No 06/22/24 15:14 [email or web address] Anesthesia Complication Comment: Post-operative progress note Anesthesia: Postop Eval II Evaluation Mental status: Awake and Calm Pain Level: 0 nausea: No Vomiting: No Complications Anesthesia Complication: No
== END 2024-06-22 16:01 | disposition home or self-care (01) ==
LOC: EN 13:05 → AC 13:06
PROVIDERS: PCP Student in an Organized Health Care Education/Training Program; Referring Provider Student in an Organized Health Care Education/Training Program; Visit Provider Internal Medicine Gastroenterology
PROC: 0DJD8ZZ Inspection of Lower Intestinal Tract, Via Natural or Artificial Opening Endoscopic (ICD-10-PCS; CPT 45378; principal; 2024-06-22 14:10)
DX: K52.9 Noninfective gastroenteritis and colitis, unspecified (principal); K63.89 Other specified diseases of intestine; K21.00 Gastro-esophageal reflux disease with esophagitis, without bleeding; K29.50 Unspecified chronic gastritis without bleeding; Z90.710 Acquired absence of both cervix and uterus; Z90.721 Acquired absence of ovaries, unilateral
CPT/HCPCS: 45380; 43239; 88305; 88312; 88342; J7120; J2405

== ENCOUNTER 2025-02-27 14:50 | Outpatient (RCR) | payer MEDICAID, SELFPAY ==
--- NOTE | 2025-03-07 16:20 | HP.OTFCE_ITS ---
Task Lift Floor (Occasional 1-33% of Day): 15# Floor (Frequent 34-66% of Day): 8# Floor (Constant 67-100% of Day): NA Floor PDL: Sedentary-Light Knee (Occasional 1-33% of Day): 25# Knee (Frequent 34-66% of Day): 12# Knee (Constant 67-100% of Day): NA Knee PDL: Light Waist (Occasional 1-33% of Day): 25# Waist (Frequent 34-66% of Day): 12# Waist (Constant 67-100% of Day): NA Waist PDL: Light Shoulder (Occasional 1-33% of Day): 15# Shoulder (Frequent 34-66% of Day): 8# Shoulder (Constant 67-100% of Day): NA Shoulder PDL: Sedentary-Light Overhead (Occasional 1-33% of Day): 10# Overhead (Frequent 34-66% of Day): NA Overhead (Constant 67-100% of Day): NA Overhead PDL: Sedentary Comments: pt in pain so no constant lift ability Work Activity/Posture Bending: Occasional Ability (1-33% of day) Squatting: Occasional Ability (1-33% of day) Comments: low ability with external support Kneeling: No Ablility (0% of day) Reaching out: Occasional Ability (1-33% of day) Reaching up: Occasional Ability (1-33% of day) Sitting: Frequent Ability (34-66% of day) Walking: Occasional Ability (1-33% of day) Standing: Occasional Ability (1-33% of day) Reference Reference: Duration Sedentary Sedentary Light Light Light Medium Medium Medium Heavy Very Heavy Heavy Occasional (0-33% of day) Frequent (34-66% of day) Constant (67-100% of day) 10 # Negligible Negligible 15 # 8 # Negligible 20 # 10# Negli. 35 # 18 # 7 # 50 # 25 # 10 # 75 # 100 # >100 # 38 # 50 # >50 # 15 # 20 # >20 # Patient Information Height: 1.63 m Weight:: 133.81 kg Hand Dominance: right Medical History Medical History Including Restrictions: Pt states she has struggled with health issues since 2005. Pt struggled with mono prolonged infections and had body pain and exhaustive. myocardice pt states she had tonsils out when she was 21 years old had her tonsils out after prolonged recurrence of strep. pt states she was able to get dx 2016 at age of 26. Pt states she was feeling the fatigue and pain for a number of years. Pt had partial hysterectomy in 2018 Diagnoses Diagnoses: Fibromyalgia dx in 2016 HTN Depression Hypokalema Hypertriglyceridemia ADHD (controlled with medication) restless leg syndrome Symptoms Symptoms: Pain fatigue sleep disruption insomnia anxiety Brain Fog short term memory staying focused on a task to finish feels like I have flu symptoms of soft tissue pain all the time Pain Pain: pt states pain sitting 05/09 (this is a medium bad day) pt states she did take her medication 2 hours ago. 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 pt states she works two days a week. pt states she is in charge to do a security check 2 x a night. pt watches the security cameras pt states she does heat up the morning meal starting at 4am and to have everything done by 5am in heating units) pt states she works Tuesday and Tuesday nights (8 hours shifts) pt states she spends Tuesday and recovering. (due to pain and exhaustion) pt states she likes her job Behavioral Behavioral: pt was cooperative throughout the assessment. ADLS ADLS: pt lives with mom in a 3-story home with basement. pt states she has steps to get into her home 3-4 steps with a railing. pt states she does climb stairs to get her bedroom. pt does use a shower chair and grab bars in the tub shower. pt has grab bars in another half bath. pt does not drive pt states her and her mom work together with cleaning, taking care of her cats and cooking pt states her mom does the laundry Physical Examination ROM: pt demo with noted hyper ext on bilateral elbows and PIPJ.s all other ROM is WNL. Strength: [employer] resistive testing Shoulder flexion right 9# left 16# shoulder extension right 10# left 15# Biceps right 14# left 12 # triceps right 11# left 12# Hip flexion right 18# left 18# Quadriceps right 18# left 18# Hamstrings right 16# left 16.8# pt demo with generalized weakness pain limiting factor Right [employer] Information Systems Instructor Strength Average: 55.00 Right Computer Information Systems Instructor Strength Percentile: 12% Left Computer Information Systems Instructor Strength Average: 46.66 Left Computer Information Systems Instructor Strength Percentile: 11% Right Lateral Pinch Average: 10.66 Right Lateral Pinch Percentile: 10% Left Lateral Pinch Average: 11.33 Left Lateral Pinch Percentile: 25% Right Tripod Pinch Average: 12.66 Right Tripod Pinch Percentile: 25% Left Tripod Pinch Average: 12.66 Left Tripod Pinch Percentile: 50% Sensation: pt tested with monofilaments at 2.83 bilateral hands Interpretation normal sensation Fine Motor: 9-hole peg test right 23.52 10% of others her age left 23.75 10% of others her age pt demo good FMS Balance: functional reach of 11 no loss of balance throughout assessment. A score of 6 or less indicates a significant increased risk for falls. A score between 6-10 inches indicates a moderate risk for falls Non Material Handling Activities Bending: pt demo the ability to bend forward 1/1x- pt uses support for activity pain 9/10 pt can bend forward on low occasion ability Squatting: pt demo the ability to squat 3/3x with external support with extend time between. pt unbale to squat 10/10x pt states pain during 9/10 after more pain in bilateral knee joints pt can squat on low occasional ability with external support Kneeling: pt demo the ability to kneel with external support x 1 with need of external support to perform safely. pt can kneel on low occasional ability with use of external support Reaching out/up: pt demo the ability to reach out/up 3/3x, 10/10x unable to perform 10/10x rapidly pt started to feel increased pain 9/10 all over heart rate 99 pt can reach up/out on occasional ability Walking: pt ambulated 300 feet x 4 during assessment. pt ambulates with a reciprocal gait pattern. Pt states pain maintains 8-9/10 with ambulation and her medication. Pt reports all her muscles feel like they are on fire and tearing with any movement- pt can ambulate on occasional ability Standing: pt demo the ability to stand for 3 min x 6 throughout the assessment. pt can stand shifting body weight on occasional ability Sitting: pt demo the ability to sit for 60 min with no apparent or expressed discomfort noted weight shifting at 30min. pt can sit on frequent ability Climbing Stairs: pt demo the ability to ascend and descend 10 steps. pt used single leg step with railing. Dynamic Occasional Lifting Capacity Floor Lift: pt demo the ability to lift 15# maximally from floor level with fair lifting mechanics. Knee Lift: pt demo the ability to lift 20# maximally from floor level with fair lifting mechanics. Waist Lift: pt demo the ability to lift 20# maximally from floor level with fair lifting mechanics. Pt wraps arms around box vs using handles states she feels she is more secure. Shoulder Lift: pt demo the ability to lift 20# maximally from waist to shoulder levels. noted struggle. Overhead Lift: pt demo the ability to lift 10# overhead with good ability pt reports pain 9/10 with tasks Carrying: pt demo the ability to carry 15# for 20 feet with arms wrapped around box vs use handles. Comments: therapist noted pt would hold her breath during lift activity and while performing repetitive motion tasks- pts heart rate ranged from 88 to 111 throughout assessment. Average was 98
--- NOTE | 2025-03-07 16:21 | HP.OTFCE.D ---
FCE D/C Summary Discharge text: PORTIA GUERRA was seen for a one time visit for an FCE on 02/27/25 and is discharged.
== END 2025-02-27 19:00 | disposition home or self-care (01) ==
LOC: OT 14:50
PROVIDERS: PCP Student in an Organized Health Care Education/Training Program; Referring Provider Student in an Organized Health Care Education/Training Program; Visit Provider Student in an Organized Health Care Education/Training Program
DX: M79.7 Fibromyalgia (principal)
CPT/HCPCS: 97750

== ENCOUNTER → 2025-07-29 | Outpatient (CLI) | payer MEDICAID, SELFPAY ==
--- NOTE | 2025-07-29 14:27 | US_ITS ---
PROCEDURE: PELVIC W/ TRANSVAGINAL 07/29/2025 REASON FOR EXAM: PAIN TECHNIQUE: Procedure Code: USPELTVAG Modality: US Procedure: PELVIC W/ TRANSVAGINAL COMPARISON: 05/23/2023 FINDINGS: . Uterus: Previously removed Right ovary: Measures 3.9 x 2.8 x 2.9 cm with a dominant 1 cm follicle Left ovary: Not visualized Other: No free fluid Bladder is incompletely distended US/Pelvic w/ Transvaginal IMPRESSION: No suspicious sonographic findings, previous partial hysterectomy Reading Location: [id number]
--- NOTE | 2025-07-29 14:27 | US_ITS ---
PROCEDURE: PELVIC W/ TRANSVAGINAL 07/29/2025 REASON FOR EXAM: PAIN TECHNIQUE: Procedure Code: USPELTVAG Modality: US Procedure: PELVIC W/ TRANSVAGINAL COMPARISON: 05/23/2023 FINDINGS: . Uterus: Previously removed Right ovary: Measures 3.9 x 2.8 x 2.9 cm with a dominant 1 cm follicle Left ovary: Not visualized Other: No free fluid Bladder is incompletely distended US/Pelvic w/ Transvaginal IMPRESSION: No suspicious sonographic findings, previous partial hysterectomy Reading Location: [id number]
== END | disposition home or self-care (01) ==
PROVIDERS: PCP Student in an Organized Health Care Education/Training Program; Referring Provider Nurse Practitioner Women's Health; Visit Provider Nurse Practitioner Women's Health
DX: R10.2 Pelvic and perineal pain (principal); E28.2 Polycystic ovarian syndrome; N80.9 Endometriosis, unspecified
CPT/HCPCS: 76830; 76856

== ENCOUNTER → 2025-08-01 | Outpatient (CLI) | payer MEDICAID, SELFPAY | END | disposition home or self-care (01) | LOC: OPBI 13:37 | PROVIDERS: PCP Student in an Organized Health Care Education/Training Program; Referring Provider Nurse Practitioner Women's Health; Visit Provider Nurse Practitioner Women's Health | DX: Z12.31 Encounter for screening mammogram for malignant neoplasm of breast (principal) | CPT/HCPCS: 77063; 77067 ==